=== PATIENT | male | born 1960 | race Caucasian/White ===

== ENCOUNTER 2023-04-30 08:39 | Day surgery (SDC) | payer BC, SELFPAY ==
--- NOTE | 2023-04-29 | HP_ITS ---
Date: 04/29/2023 HISTORY: The patient is a 62-year-old white male with complaints of declining vision out of his right eye. The general make up of onset was gradual over the last 6-12 months. He feels he is frequently noticing difficulty with distance vision such as road signs and the scroller at the bottom of the TV. He also states having difficulty at night time while driving because of headlights creating glare and halos. PAST OCULAR HISTORY: Cataracts. PAST MEDICAL HISTORY: Arthritis. SOCIAL HISTORY: Drinks occasionally. Denies recreational drug abuse and denies tobacco. SYSTEMIC MEDICATIONS: Include bupropion and Vraylar and diclofenac. ALLERGIES TO MEDICATIONS: To pollen extract. REVIEW OF SYSTEMS: No pertinent positives. PHYSICAL EXAM: GENERAL: In general, he is awake, alert and oriented x3, well developed, well nourished, in no acute distress. HEART: Regular rate and rhythm. LUNGS: Clear bilaterally. ABDOMEN: Soft, non-tender, non-distended. EXTREMITIES: No pitting edema. OPHTHALMIC EXAM: Revealed a visual acuity of 20/400 in the right and 20/40 -1 in the left that glared to 20/200. Pupils motility, muscle balance and confrontational visual isabel within normal limits bilaterally. Pressures are measured at 16 bilaterally. Slit lamp exam revealed blepharitis with a severe decrease in tear film bilaterally. Conjunctiva, cornea, anterior chamber and iris were within normal limits bilaterally. Lens status demonstrates 3+ nuclear sclerosis 1+ cortical changes and 3+ PSC in the right eye and 2+ nuclear sclerosis, 1+ cortical changes and 2+ PSC in the left eye. FUNDUS EXAM: Revealed poor view in the right and good view on the left. Optic discs, macula, vessels, periphery were within normal limits bilaterally. ASSESSMENT AND PLAN: Visually significant cataract, right eye. After the risks, benefits, and alternatives as well as expectations were delivered to the patient, he elected to go forward with cataract removal. He understands those risks to include but not limited to infection, bleeding, loss of vision or loss of the eye itself. Secondly, he understands that postoperatively he is likely to require spectacle correction for his best visual acuity. Finally, a complete ophthalmic exam was performed and there was not determined to be any other source of vision decline other than that of cataract. After understanding all risks as well as expectations, he elected to go forward with the procedure as listed above and will be doing so in the near future. MTDD
--- NOTE | 2023-04-30 | OP_ITS ---
OPERATION DATE: 04/30/2023 SURGEON: Get Colbert M.D. PREOPERATIVE DIAGNOSIS: Nuclear sclerotic cataract right eye. POSTOPERATIVE DIAGNOSIS: Nuclear sclerotic cataract right eye. PROCEDURE NAME: Cataract extraction with intraocular lens placement for the right eye. ANESTHESIA: Topical. ESTIMATED BLOOD LOSS: Zero. COMPLICATIONS: None. PROCEDURE: Patient brought to the operating room in supine position. After proper identification, the right eye was prepped and draped in a sterile ophthalmic fashion. A paracentesis was created at the 11 o'clock position. Approximately 1 mL of unpreserved Xylocaine was injected into the anterior chamber followed by Amvisc Plus. Using a 2.6 mm Keratome blade, a clear corneal incision was created at the 9 o'clock limbus. A cystotome was then used to begin a curvilinear capsulorrhexis that was continued for 360 degrees with the Utrata forceps. BSS on a 26 gauge cannula was injected beneath the anterior capsule to hydrodissect as well as hydrodelineate the lens. After ensuring mobility, phacoemulsification was performed in a [id number]-bcr-[id number]-type fashion. After all nuclear material had been removed from the eye, IA was introduced and all residual cortical material was cleaned up. Additional Amvisc Plus was injected into the posterior bag and a lens model MX60, 18.0 diopters was then injected and dialed into position. After ensuring centration, IA was reintroduced into the anterior chamber and all residual Amvisc Plus was removed from the eye. BSS on a 30 gauge cannula was injected into the stroma of both the clear corneal incision as well as the paracentesis to hydrate the wounds. Additional BSS was injected into the anterior chamber to pressurize the eye at approximately 20 to 22 mmHg by finger tension. 0.1 mL of antibiotic was injected into the anterior chamber and Weck-Candace sponges were used to check the wounds to be watertight. One drop of Apraclonidine and one drop of prednisolone acetate were placed into the eye and a shield was placed over top. The patient was then sent to the postoperative area in satisfactory condition to follow up the following day for postoperative care. TALITA
[2023-04-30 08:48] VITALS: BP 139/87; PULSE 87; RESP 18; TEMP 36.5; O2SAT 96
[2023-04-30] MEDS: DIAZEPAM 5 MG TABLET PO (09:05)
[2023-04-30] MEDS: TROPICAMIDE 1% OP SOL 300 DROP/15 ML BOTTLE OP ×4 (09:06→09:39)
[2023-04-30] MEDS: BESIFLOXACIN HCL 100 DROP DROPS.SUSP OP ×4 (09:06→09:38)
[2023-04-30] MEDS: CYCLOPENTOLATE HCL 1% OP SOL 40 DROP/2 ML BOTTLE OP ×4 (09:07→09:39)
[2023-04-30] MEDS: PHENYLEPHRINE HCL 2.5% OP SOL 40 DROP/2 ML BOTTLE OP ×4 (09:07→09:38)
[2023-04-30 10:28] VITALS: BP 144/85; PULSE 69; RESP 18; O2SAT 97
[2023-04-30] MEDS: APRACLONIDINE HCL 100 DROP/5 ML BOTTLE OP (10:32)
[2023-04-30] MEDS: HYALURONATE SODIUM 16 MG/ML SYRINGE EYE-RIGHT (10:32)
[2023-04-30] MEDS: LIDOCAINE 2% JELLY 10 ML UR (10:32)
[2023-04-30] MEDS: BETADINE POVIDONE-IODINE 5% OP SOL 30 ML BOTTLE OP (10:33)
[2023-04-30] MEDS: PROPARACAINE HCL 0.5% 300 DROP/15 ML BOTTLE OP (10:33)
[2023-04-30] MEDS: LIDOCAINE HCL 1% PF 20 MG/2 ML VIAL 1 ML INJ (10:33)
[2023-04-30] MEDS: PREDNISOLONE ACETATE OP 1% SUSP 100 DROPS/5 ML 1 DROP OP (10:33)
[2023-04-30] MEDS: TETRACAINE HCL 0.5% OP SOL 80 DROP/4 ML BOTTLE OP (10:34)
[2023-04-30] MEDS: CEFUROXIME SODIUM 750 MG, 0.9 % SODIUM CHLORIDE 16.3 ML OP (10:34)
[2023-04-30] MEDS: PHENYLEPHRINE/KETOROLAC 1-0.3% ML VIAL 4 ML IRR (10:34)
[2023-04-30 10:37] VITALS: BP 133/75; PULSE 71; RESP 18; O2SAT 97
--- OUTSIDE RECORDS SUMMARY | 2023-05-13 02:44 | XMS_ITS | CCD ---
Author Name Unknown Address [facility] [address] [place] [address] Organization [facility] Care Team Providers Care Roof Service Technician Name Role Phone Dina Hammer Primary Care Physician DOMINGA KELLY Admitting Unavailable DOMINGA KELLY Attending Unavailable DOMINGA KELLY Consulting Unavailable HOY ., DR ARROYO Primary Care Unavailable GEORGE NAVARRO Consulting Unavailable NILL ., DR SANCHEZ Attending Unavailable NILL ., DR SANCHEZ Consulting Unavailable NILL ., DR SANCHEZ Admitting Unavailable HOY ., DR ARROYO Primary Care Unavailable AGUBOSIVIANCA Echavarria Consulting Unavailable CECIL ROWELL Consulting Unavailable NILL ., DR SANCHEZ Admitting Unavailable HOY ., DR ARROYO Primary Care Unavailable NILL ., DR SANCHEZ Attending Unavailable HOY ., DR ARROYO Primary Care Unavailable HOY ., DR ARROYO Admitting Unavailable HOY ., DR ARROYO Attending Unavailable HOY ., DR ARROYO Consulting Unavailable DOMINGA KELLY Attending Unavailable DOMINGA KELLY Admitting Unavailable DOMINGA KELLY Consulting Unavailable HOY ., DR ARROYO Primary Care Unavailable LEVI ORTEGA Attending Unavailable DONIS BRADY Referring Unavailable Allergies Allergy Classification Reported Allergen(s) Allergy Type Date of Onset Reaction(s) Facility (1 source) Pollen Allergy to substance Discharge from eye (finding) [facility] Work Phone: NEGATED: Highlighted row has been ruled out! (1 source) Drug allergy [facility] Work Phone: Medications Current Medications Medication Drug Class(es) Dates Sig (Normalized) Sig (Original) atorvastatin 20 mg oral tablet (1 source) HMG-CoA Reductase Inhibitor Start: 08-01-2020 take 20 mg by mouth once daily atorvastatin 20 mg, Oral, Daily, Refills(s) 0 Start Date: 08/01/20 Status: Ordered 24 hr buPROPion hydrochloride 300 mg extended release oral tablet (1 source) Aminoketone Start: 08-21-2021 take 1 tablet by mouth once daily Wellbutrin XL 300 mg/24 hours Tab-ER 300 mg = 1 tab(s), Oral, Daily, Refills(s) 0 Start Date: 08/21/21 Status: Ordered cariprazine 3 mg oral capsule (1 source) Atypical Antipsychotic Start: 08-01-2020 take 3 mg by mouth once daily Vraylar 3 mg, Oral, Daily, Refills(s) 0 Start Date: 08/01/20 Status: Ordered Problems Active Problems Problem Classification Problem Date Documented Da te Episodic/Chronic Anxiety disorders (2 sources) Anxiety; Translations: [Anxiety disorder, unspecified] Onset: 10-18-2021 08-21-2021 Chronic Disorders of lipid metabolism (1 source) Hyperlipidemia, unspecified; Translations: [HYPERLIPIDEMIA UNSPECIFIED] Onset: 10-18-2021 Chronic Esophageal disorders (1 source) Gastro-esophageal reflux disease without esophagitis; Translations: [GERD WITHOUT ESOPHAGITIS] Onset: 10-18-2021 Chronic Genitourinary symptoms and ill-defined conditions (1 source) Fransisco hematuria 08-01-2020 Episodic Gout and other crystal arthropathies (2 sources) Gout; Translations: [Gout, unspecified] Onset: 10-18-2021 08-01-2020 Chronic Mood disorders (3 sources) Bipolar disorder; Translations: [Depressive disorder] Onset: 10-18-2021 08-21-2021 Chronic Other connective tissue disease (4 sources) Pain in left leg; Translations: [PAIN IN LEFT LEG] Onset: 08-18-2022 Episodic Other endocrine disorders (1 source) Syndrome of inappropriate vasopressin secretion 08-21-2021 Chronic Other gastrointestinal disorders (1 source) History of diverticulitis 08-21-2021 Episodic Other nutritional; endocrine; and metabolic disorders (1 source) Body mass index 40+ - severely obese 08-21-2021 Chronic Residual codes; unclassified (1 source) Sleep apnea, unspecified; Translations: [SLEEP APNEA UNSPECIFIED] Onset: 10-18-2021 Chronic Unclassified (1 source) Patient encounter status 08-21-2021 Unclassified (1 source) CONTACT W/AND (SUSP) EXPOS COVID-19; Translations: [CONTACT W/AND (SUSP) EXPOS COVID-19] Onset: 02-27-2022 Past or Other Problems Problem Classification Problem Date Documented Da te Episodic/Chronic Calculus of urinary tract (3 sources) Kidney stone; Translations: [Ureteric stone] Onset: 10-18-2021 08-01-2020 Episodic Other screening for suspected conditions (not mental disorders or infectious disease) (6 sources) Screening for malignant neoplasm of colon done; Translations: [Encounter for screening for malignant neoplasm of colon] Onset: 08-21-2021 Episodic Other upper respiratory infections (4 sources) Acute sinusitis, unspecified; Translations: [ACUTE SINUSITIS UNSPECIFIED] Onset: 02-26-2022 Episodic Results Test Name Value Interpretation Reference Range Facil ity US RICO DOP LEG LTon 08-19-19 23 US RICO DOP LEG LT EXAMINATION: US RICO DOP LEG LT HISTORY: Pain in left leg COMPARISON: None. TECHNIQUE: Venous duplex examination of the left lower extremity performed using B-mode, color flow and spectral analysis. FINDINGS: Left Thigh Veins: Common Femoral: Patent. Femoral (SFV): Patent. Popliteal: Patent. Left Calf Veins: Peroneal: Patent. Posterior Tibial: Patent. IMPRESSION: No evidence of deep venous thrombosis in the left lower extremity. Electronically authenticated by: GEORGE NAVARRO Date: 2022-08-18 19:53 [address] [facility] Covid-19 PCR (CVDTB)on SARS-CoV-2 (COVID-19) RNA LUÍS+probe Ql (Unsp spec) Not detected Normal NOT DETECTED The [facility] [place] Comment on above: Result Comment: This test is not yet approved or cleared by the [place] FDA. When there are no FDA-approved or cleared tests available, and other criteria are met, FDA can make tests available under an emergency access mechanism called an Emergency Use Authorization (EUA). The EUA for this test is supported by the [place] of Health and Human Service's (HHS's) declaration that circumstances exist to justify the emergency use of in vitro diagnostics for the detection and/or diagnosis of the virus that causes COVID-19. This EUA will remain in effect (meaning this test can be used) for the duration of the COVID-19 declaration justifying emergency of IVDs, unless it is terminated or revoked by FDA (after which the test may no longer be used). When diagnostic testing is negative, the possibility of a false negative should be considered in the context of a patient's recent exposures and the presence of clinical signs and symptoms consistent with SARS-CoV-2. Performed By: #### C VDTBH #### [facility] [address] [place] [address] Dr. Sam Szymanski INSULINon 02-12-2022 Insulin 16.5 uIU/mL Normal 2.6-24.9 [facility] Comment on above: Performed By: #### I NSULIN #### [facility] [address] [place] [address] Dr. Sam Szymanski CBC AUTO DIFFon 02-11-2022 BASO # 0.1 103/ul Normal 0.0-0.1 [facility] Comment on above: Performed By: #### C BC #### [facility] [address] [place] [address] Dr. Sam Szymanski Basophils/100 WBC (Bld) 1.0 % Normal 0.2-2.0 [facility] Comment on above: Performed By: #### C BC #### [facility] [address] [place] [address] Dr. Sam Szymanski EO # 0.1 103/ul Normal 0.0-0.7 [facility] Comment on above: Performed By: #### C BC #### [facility] [address] [place] [address] Dr. Sam Szymanski Eosinophils/100 WBC (Bld) 2.5 % Normal 0.9-7.0 [facility] Comment on above: Performed By: #### C BC #### [facility] [address] [place] [address] Dr. Sam Szymanski Erythrocyte distribution wid th (RBC) [Ratio] 12.7 % Normal 11.0-15.0 [facility] Comment on above: Performed By: #### C BC #### [facility] [address] [place] [address] Dr. Sam Szymanski Hematocrit (Bld) [Volume fraction] 45.3 % Normal 4 2.0-54.0 [facility] Comment on above: Performed By: #### C BC #### [facility] [address] [place] [address] Dr. Sam Szymanski Hemoglobin (Bld) [Mass/Vol] 15.2 g/dL Normal 14.0-18. 0 [facility] Comment on above: Performed By: #### C BC #### [facility] [address] [place] [address] Dr. Sam Szymanski IG # 0.01 10e3/ul Normal 0.00-0.03 [facility] Comment on above: Performed By: #### C BC #### [facility] [address] [place] [address] Dr. Sam Szymanski IG % 0.2 % Normal 0.0-0.5 [facility] Comment on above: Performed By: #### C BC #### [facility] [address] [place] [address] Dr. Sam Szymanski LYMPH # 1.7 103/ul Normal 1.2-3.8 [facility] Comment on above: Performed By: #### C BC #### [facility] [address] [place] [address] Dr. Sam Szymanski Lymphocytes/100 WBC (Bld) 36.0 % Normal 20.5-60.0 [facility] Comment on above: Performed By: #### C BC #### [facility] [address] [place] [address] Dr. Sam Szymanski MANUAL DIFF REQ NO Normal [facility] Comment on above: Performed By: #### C BC #### [facility] [address] [place] [address] Dr. Sam Szymanski MCH (RBC) [Entitic mass] 32.5 pg Normal 25.9-34.0 [facility] Comment on above: Performed By: #### C BC #### [facility] [address] [place] [address] Dr. Sam Szymanski MCHC (RBC) [Mass/Vol] 33.6 g/dL Normal 29.9-35.2 [facility] Comment on above: Performed By: #### C BC #### [facility] [address] [place] [address] Dr. Sam Szymanski MCV (RBC) [Entitic vol] 96.8 fL Critically high 80.0-94 .0 [facility] Comment on above: Performed By: #### C BC #### [facility] [address] [place] [address] Dr. Sam Szymanski MONO # 0.4 103/ul Normal 0.3-0.8 [facility] Comment on above: Performed By: #### C BC #### [facility] [address] [place] [address] Dr. Sam Szymanski Monocytes/100 WBC (Bld) 7.4 % Normal 1.7-12.0 [facility] Comment on above: Performed By: #### C BC #### [facility] [address] [place] [address] Dr. Sam Szymanski NEUT # 2.6 103/ul Normal 1.4-6.5 [facility] Comment on above: Performed By: #### C BC #### [facility] [address] [place] [address] Dr. Sam Szymanski Neutrophils/100 WBC (Bld) 52.9 % Normal 43.0-75.0 [facility] Comment on above: Performed By: #### C BC #### [facility] [address] [place] [address] Dr. Sam Szymanski Platelet mean volume (Bld) [Entitic vol] 9.9 fL Normal 9.5-13.5 [facility] Comment on above: Performed By: #### C BC #### [facility] [address] [place] [address] Dr. Sam Szymanski PLT 204 103/ul Normal 150-450 [facility] Comment on above: Performed By: #### C BC #### [facility] [address] [place] [address] Dr. Sam Szymanski RBC 4.68 106/ul Critically low 4.70-6.10 [facility] Comment on above: Performed By: #### C BC #### [facility] [address] [address] [address] Sam Szymanski WBC 4.8 103/ul Normal 4.0-11.0 [facility] Comment on above: Performed By: #### C BC #### [facility] [address] [address] [address] Sam Szymanski GLYCOHEMOGLOBIN A1Con 2021 ADA RECOMMENDATION SEE BELOW Normal [facility] Comment on above: Result Comment: ADA RECOMMENDED LIMIT 4.0 - 6.0 ADA THERAPEUTIC TARGET < 7.0 ACTION SUGGESTED > 7.0 Performed By: #### A 1C #### [facility] [address] [place] [address] Dr. Sam Szymanski Glucose [Mass/Vol] 117 mg/dL Normal [facility] Comment on above: Performed By: #### A 1C #### [facility] [address] [place] [address] Dr. Sam Szymanski HbA1c (Bld) [Mass fraction] 5.7 % Normal 4.5-6.2 [facility] Comment on above: Performed By: #### A 1C #### [facility] [address] [place] [address] Dr. Sam Szymanski LIPID PROFILEon 02-11-2022 CHOL-HDL RATIO NORM SEE BELOW Normal [facility] Comment on above: Result Comment: 3.3 - 4.4 LOW RISK 4.4 - 7.1 AVERAGE RISK 7.1 - 11.0 MODERATE RISK >11.0 HIGH RISK Performed By: #### L IPID, URIC, CMP #### [facility] [address] [address] [address] Sam Szymanski Cholesterol [Mass/Vol] 224 mg/dL Critically high <=[address] [facility] Comment on above: Performed By: #### L IPID, URIC, CMP #### [facility] [address] [address] [address] Sam Szymanski Cholesterol in HDL [Mass/Vol] 46 mg/dL Normal 40-[address] [facility] Comment on above: Performed By: #### L IPID, URIC, CMP #### [facility] [address] [address] [address] Sam Szymanski Cholesterol in LDL [Mass/Vol] 119.4 mg/dL Normal [facility] Comment on above: Performed By: #### L IPID, URIC, CMP #### [facility] [address] [address] [address] Sam Szymanski Cholesterol.total/Cholestero l in HDL [Mass ratio] 4.9 {ratio} Normal [facility] Comment on above: Performed By: #### L IPID, URIC, CMP #### [facility] [address] [address] [address] Sam Szymanski HDL NORMAL > or = 60 mg/dl - LO W CARDIOVASCULAR RISK <40 mg/dl - HIGH CARDIOVASCULAR RISK Normal [facility] Comment on above: Performed By: #### L IPID, URIC, CMP #### [facility] [address] [address] [address] Sam Szymanski LDL CALC NORMAL SEE BELOW Normal [facility] Comment on above: Result Comment: <100 mg/dl OPTIMAL 100 - 129 mg/dl NEAR OR ABOVE OPTIMAL 130 - 159 mg/dl BORDERLINE HIGH 160 - 189 mg/dl HIGH >190 mg/dl VERY HIGH Performed By: #### L IPID, URIC, CMP #### [facility] [address] [address] [address] Sam Szymanski Triglyceride [Mass/Vol] 293 mg/dL Critically high <=[address] [facility] Comment on above: Performed By: #### L IPID, URIC, CMP #### [facility] [address] [address] [address] Sam Szymanski VLDL CALC 58.6 mg/dL Normal [facility] Comment on above: Performed By: #### L IPID, URIC, CMP #### [facility] [address] [address] [address] Sam Szymanski PROF 14(COMP METB)on 022 Albumin [Mass/Vol] 3.7 g/dL Normal 3.4-5.0 [facility] Comment on above: Performed By: #### L IPID, URIC, CMP #### [facility] [address] [place] [address] Dr. Sam Szymanski Albumin/Globulin [Mass ratio] 1.3 {ratio} Normal [facility] Comment on above: Performed By: #### L IPID, URIC, CMP #### [facility] [address] [place] [address] Dr. Sam Szymanski ALP [Catalytic activity/Vol] 101 U/L Normal 46-116 [facility] Comment on above: Performed By: #### L IPID, URIC, CMP #### [facility] [address] [place] [address] Dr. Sam Szymanski ALT [Catalytic activity/Vol] 45 U/L Normal 16-63 [facility] Comment on above: Performed By: #### L IPID, URIC, CMP #### [facility] [address] [place] [address] Dr. Sam Szymanski Anion gap [Moles/Vol] 9.8 mmol/L Normal [facility] Comment on above: Performed By: #### L IPID, URIC, CMP #### [facility] [address] [place] [address] Dr. Sam Szymanski AST [Catalytic activity/Vol] 23 U/L Normal 15-37 [facility] Comment on above: Performed By: #### L IPID, URIC, CMP #### [facility] [address] [address] [address] Sam Szymanski Bilirubin [Mass/Vol] 0.5 mg/dL Normal 0.2-1.0 [facility] Comment on above: Performed By: #### L IPID, URIC, CMP #### [facility] [address] [place] [address] Dr. Sam Szymanski Calcium [Mass/Vol] 8.9 mg/dL Normal 8.5-10.1 [facility] Comment on above: Performed By: #### L IPID, URIC, CMP #### [facility] [address] [place] [address] Dr. Sam Szymanski Chloride [Moles/Vol] 107 mmol/L Normal 98-107 [facility] Comment on above: Performed By: #### L IPID, URIC, CMP #### [facility] [address] [address] [address] Sam Szymanski CO2 [Moles/Vol] 26.2 mmol/L Normal 21.0-32.0 [facility] Comment on above: Performed By: #### L IPID, URIC, CMP #### [facility] [address] [place] [address] Dr. Sam Szymanski Creatinine [Mass/Vol] 1.12 mg/dL Normal 0.70-1.30 [facility] Comment on above: Performed By: #### L IPID, URIC, CMP #### [facility] [address] [place] [address] Dr. Sam Szymanski EGFR-AF KITTITIAN >60 Normal >=60 [facility] Comment on above: Performed By: #### L IPID, URIC, CMP #### [facility] [address] [place] [address] Dr. Sam Szymanski EGFR-NON AF KITTITIAN >60 Normal >=60 [facility] Comment on above: Performed By: #### L IPID, URIC, CMP #### [facility] [address] [place] [address] Dr. Sam Szymanski Globulin (S) [Mass/Vol] 2.9 g/dL Normal [facility] Comment on above: Performed By: #### L IPID, URIC, CMP #### [facility] [address] [place] [address] Dr. Sam Szymanski Glucose [Mass/Vol] 112 mg/dL Critically high 74-106 [facility] Comment on above: Performed By: #### L IPID, URIC, CMP #### [facility] [address] [place] [address] Dr. Sam Szymanski Potassium [Moles/Vol] 4.0 mmol/L Normal 3.5-5.1 [facility] Comment on above: Performed By: #### L IPID, URIC, CMP #### [facility] [address] [address] [address] Sam Szymanski Protein [Mass/Vol] 6.6 g/dL Normal 6.4-8.2 [facility] Comment on above: Performed By: #### L IPID, URIC, CMP #### [facility] [address] [address] [address] Sam Szymanski Sodium [Moles/Vol] 139 mmol/L Normal 136-145 [facility] Comment on above: Performed By: #### L IPID, URIC, CMP #### [facility] [address] [address] [address] Sam Szymanski Urea nitrogen [Mass/Vol] 10.0 mg/dL Normal 7.0-18.0 [facility] Comment on above: Performed By: #### L IPID, URIC, CMP #### [facility] [address] [place] [address] Dr. Sam Szymanski Urea nitrogen/Creatinine [Mass ratio] 8.9 mg/mg Normal [facility] Comment on above: Performed By: #### L IPID, URIC, CMP #### [facility] [address] [place] [address] Dr. Sam Szymanski URIC ACID SERUMon 02-11-2022 Urate [Mass/Vol] 7.3 mg/dL Critically high 3.5-7.2 [facility] Comment on above: Performed By: #### L IPID, URIC, CMP #### [facility] [address] [place] [address] Dr. Sam Szymanski Outside Colonoscopyon 2021 Outside Colonoscopy [id number]:127 Normal [facility] Reminderson 10-17-2021 Reminders - From: Angelica Pinedo LPN To: N - Clinical; Sent: 10/17/2021 15:19:49 EDT Show up: 09/17/2031 07:00:00 EDT Subject: colonoscopy recall Due Date/Time: 10/17/2031 07:00:00 EDT Reminder/Recall Patient is due for screening colonoscopy 10/17/2031. [facility] Pre-Certification Formon Pre-Certification Form [id number]#[id number]:127 [facility] Consent for Procedure/Surger yon 08-22-2021 Consent for Procedure/Surgery [id number]#[id number]:127 [facility] Facesheeton 08-22-2021 Facesheet [id number]#[id number]: 127 [facility] Ambulatory Visit Summaryon 0 08-21-2021 Ambulatory Visit Summary STERLING RAPHAEL :1960 Visit Date:08/21/2021 Ambulatory Visit Instructions Your Care Team Attending Physician - LILA GUSMAN, Laura Carter Primary Care Physician - Dina Hammer MD This Is Your Medications List Contact prescribing physician if questions or concerns atorvastatin buPROPion (Wellbutrin XL 300 mg/24 hours Tab-ER) cariprazine (Vraylar) Procedures Performed Colonoscopy (05/12/2012), Lithotripsy, Ts - Tonsillectomy. Discharge Vitals Heart Rate (Peripheral) 76 Respiratory Rate 16 Blood Pressure 116/88 Height 180 cm Height 180.0 cm Weight 131.3 kg Weight 131.3 kg BMI 40.52 Medications What How Much When Instructions Unchanged atorvastatin 20 Milligram By Mouth Every day Contact prescribing physician if questions or concerns Unchanged buPROPion (Wellbutrin XL 300 mg/ 24 hours Tab-ER) 1 Tablets By Mouth Every day Contact prescribing physician if questions or concerns Unchanged cariprazine (Vraylar) 3 Milligram By Mouth Every day Contact prescribing physician if questions or concerns Medications and Immunizations Administered Not Given influenza virus vaccine, inactivated, Patient Refuses Allergies No Known Medication Allergies Pollen (Runny eye - discharging) Problems Ongoing - Any problem that you are currently receiving treatment for. ADH disorder Anxiety Bipolar disorder BMI 40.0-44.9, adult Depression Gout Gross hematuria History of diverticulitis Kidney stone Ureteral stone Normal [facility] Physician Referralon 022 Physician Referral [id number]:127 Normal [facility] Lab Reportson 07-03-2021 Lab Reports [id number] D:127 Normal [facility] Lab Reportson 06-29-2021 Lab Reports [id number] D:127 Normal [facility] RAD - MISCon 05-27-2021 RAD - MISC [id number] :127 Normal [facility] Vital Signs Date Time Vital Sign Value Performing Clinician Neal ortiz 08-21-2021 14:17-0400 Blood Pressure Location [facility] 08-21-2021 14:17-0400 Diastolic blood pressure 88 mm[Hg] [facility] 08-21-2021 14:17-0400 Heart rate 76 /min [facility] 08-21-2021 14:17-0400 Respiratory rate 16 /min [facility] 08-21-2021 14:17-0400 Systolic blood pressure 116 mm[Hg] [facility] Encounters Encounter Date Encounter Type Care Provider Facility Start: 05-01-2023 End: 05-01-2023 ambulatory LEVI ORTEGA Not Available Start: 08-18-2022 End: 08-19-2022 ambulatory DOMINGA KELLY Facility:[facility] Start: 02-26-2022 End: 02-26-2022 ambulatory DOMINGA KELLY Facility:[facility] Start: 02-12-2022 Encounter for genera l adult medical examination without abnormal findings DR DINA HAMMER . [facility] Start: 02-11-2022 End: 02-12-[address] DINA HAMMER . Facility:[facility] Start: 02-11-2022 End: 02-12-2022 Encounter for general adult medical examination without abnormal findings DR DINA HAMMER . Facility:[facility] Start: 10-16-2021 End: 10-16-[address] LAURA SELBY . Facility:[facility] Start: 10-12-[address] LAURA SELBY . Facil ity:[facility] Start: 08-21-2021 End: 08-21-2021 Patient encounter procedure Laura SELBY [facility] [place] Procedures Date Procedure Procedure Detail Performing Clinician Start: 02-11-2022 PSA screening DOMINGA PRIDE Comment on above: Performed By: #### [facility] #### [facility] [address] [place] [address] Dr. Sam Szymanski Start: 05-12-2012 Colonoscopy Laura MARCIAL Lithotripsy Laura SELBY Tonsillectomy Laura SELBY Immunizations Immunization Date Immunization Notes Care Provider Fa cility NEGATED: Highlighted row has not occurred!08-21-2021 influenza virus vaccine, unspecified formulation Laura SELBY [facility] [place] Payers Date Payer Category Payer Unknown [id number] [id number] 1960 Unknown [id number] [id number] [id number] 1960 Unknown [id number] [id number] [id number] 1960 Unknown [id number] 2.16.84 [id number] 1960 Unknown [id number] 2.16.84 [id number] 1960 Unknown [id number] 1959 Unknown [id number] Social History Date Type Detail Facility Start: 08-21-2021 Tobacco smoking status Ex-smoker (fi nding) [facility] [place] Tobacco smoking status Smokeless tobacco user within last 30 days [facility] [place] Sex Assigned At Male [facility] [place] Clinical Note 10-16-2021 Note Date & Type Note Facility 10-16-2021 Note [facility] [place], [place] NAME: STERLING RAPHAEL DATE OF : MEDICAL REC#: [id number] 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 POSTOPERATIVE DIAGNOSIS: Normal colon to cecum. PROCEDURE: Colonoscopy to cecum. SURGEON: Laura Selby M.D. ANESTHESIA: Monitored anesthesia care. PREP: Good. INDICATIONS AND CONSENT: Patient is a 61-year-old male who presents for colorectal screening. Indications, risks, benefits, alternatives of proceeding with colonoscopy were explained extensively to the patient, including the risks of bleeding, colonic perforation or anesthetic complications. All of his questions were answered. Informed consent was obtained. PROCEDURE: Patient brought to the operating room, placed in the left lateral decubitus position. Monitored anesthesia care was provided. Rectal exam was performed which showed no masses or blood. The scope was inserted into the anal canal. Under direct visualization was advanced. With the aid of abdominal compression, it was advanced to the cecum where cecal markings were clearly identified. There was noted to be a good prep. Upon withdrawal of the scope, mucosal surfaces were carefully examined. There were no mass lesions or polyps. No inflammatory changes or ulcerations. No significant diverticulosis. The scope was retroflexed in the anal canal. There was no significant hemorrhoidal disease. Scope was then withdrawn. Patient tolerated procedure well, was sent to recovery room in good condition. f/u colonoscopy in 10 years. CC: Dina Hammer M.D. Electronically Authenticated and Edited by: Laura Selby MD on 10/23/2021 08:32 AM EDT IFC Signed and Approved by: DR LAURA SELBY . 10/23/2021 08:32:[address] [facility] Clinical Note 08-21-2021 Note Date & Type Note Facility 08-21-2021 Note Chief Complaint consultation for colonoscopy HPI Staff 61 year old male presents on consultation from Dr. Hammer for colonoscopy. Denies abdominal or rectal pain. No rectal bleeding or change in bowel habits. Denies nausea or vomiting. No unexplained weight loss. Last colonoscopy completed 05/12/12- normal. Grandmother and aunt with history of colon cancer. History of Present Illness 61 yo male with h/o hyperlipidemia, referred for colorectal screening; denies change in bms or blood in stools; no abdominal complaints; last colonoscopy 2011, wnl; no previous abdominal operations, no asa or NSAID use, no SBE prophylaxis; no fmhx of GI malignancy or IBD. rare tobacco use. Review of Systems PHQ Score Initial Depression Screen Score: 0 ROS - Provider Constitutional: no fever, no sweats, no weight loss. Eyes: no glasses, no blurred vision, no visual loss. ENMT: no dentures, no hoarseness, no swallowing difficulties, no hearing loss, no ear infection(s), no nose bleeds. Cardiovascular: normal blood pressure, no chest pain, regular heartbeat, no heart murmur. Respiratory: no shortness of breath, no cough, no asthma, no wheezing. Gastrointestinal: no nausea, no vomiting, no diarrhea, no constipation, no blood in stool, no change in bowel habits, no abdominal pain, no hepatitis. Genitourinary: no kidney stones, no urine infection, no dysuria. Musculoskeletal: no pain, no weakness. Skin: no changing moles, no rash, no skin lumps. Neurologic: no seizures, no epilepsy, no headache. Psychiatric: no emotional or psychiatric problem. Heme/Lymph: no bleeding problems, no anemia, no blood clots, no transfusions. Allergy/Immunologic: no swollen lymph nodes/glands, no IV drug abuse. Other: Additional ROS info: Except as noted in the above Review of Systems and in the History of Present Illness, all other systems have been reviewed and are negative or noncontributory. Physical Exam Vitals & Measurements HR: 76(Peripheral) RR: 16 BP: 116/88 HT: 180 cm HT: 180.0 cm WT: 131.3 kg WT: 131.3 kg BMI: 40.52 HEENT: normal conjunctiva, sclera clear, no scleral icterus, EOM intact, PERRLA, oral mucosa moist without lesions. Neck: trachea midline, no mass, symmetric, no thyromegaly or nodules, no adenopathy Respiratory: lungs CTA, respirations non labored. Cardiovascular: regular rate and rhythm, no murmur, no pedal edema or varicosities. Gastrointestinal: obese, soft, non distended, no tenderness, no masses, no palpable hernias, diastasis recti no, no hepatosplenomegaly; normal bs Lymphatic: no cervical adenopathy, Musculoskeletal: normal gait, digits and nails without infection, nodes, cyanosis, clubbing. Skin: no rashes, no lesions, no ulcers, no subcutaneous nodules, induration. Psychiatric/Neuro: oriented to time, place, person, judgement normal, affect appropriate for age, insight intact, no focal deficits. Tests: review of old records completed, Discussed surgical options, risks, and possible complications with patient. Assessment/Plan 1. Screening for malignant neoplasm of colon (Z12.11: Encounter for screening for malignant neoplasm of colon) plan colonoscopy under anesthesia, informed consent obtained. Follow-up No qualifying data available Problem List/Past Medical History Ongoing ADH disorder Anxiety Bipolar disorder BMI 40.0-44.9, adult Depression Gout Gross hematuria History of diverticulitis Kidney stone Screening for malignant neoplasm of colon Ureteral stone Historical No qualifying data Procedure/Surgical History Colonoscopy (05/12/2012), Lithotripsy, Ts - Tonsillectomy. Medications atorvastatin, 20 mg, Oral, Daily Vraylar, 3 mg, Oral, Daily Wellbutrin XL 300 mg/24 hours Tab-ER, 300 mg= 1 tab(s), Oral, Daily Allergies No Known Medication Allergies Pollen (Runny eye - discharging) Social History Alcohol - Denies Alcohol Use, 08/21/2021 Substance Abuse - Denies Substance Abuse, 08/21/2021 Tobacco Former smoker, quit more than 30 days ago Tobacco Use:. Smokeless tobacco user within last 30 days Smokeless Tobacco Use:. Cigarettes, Oral, Yes, 08/21/2021 Family History Abdominal aortic aneurysm: Father. Hypothyroidism: Sister. Metastatic cancer: Mother. Primary malignant neoplasm of bladder: Father. Immunizations Vaccine Date Status Comments influenza virus vaccine, inactivated - Not Given Patient Refuses [facility] Comment on above: Result Comment: Elec tronically Signed By: LILA GUSMAN, Laura Murcia\Date and Time Signed: 08/21/21 16:36 EDT Evaluation + Plan note Note Date & Type Note Facility Evaluation + Plan note No data available for this section [facility] [place] [facility] Discharge instructions Note Date & Type Note Facility Hospital Discharge instructions No data available for this section [facility] [place] Summary Purpose Family History No Family History Records FoundNo Family History Records FoundNo Family History Records Found Advance Directives No Advanced Directives Records FoundNo Advanced Directives Records FoundNo Advanced Directives Records Found Additional Source Comments (unrecognized sect ion and content) No Status Records FoundNo Status Records FoundNo Status Records Found INFORMATION SOURCE (unrecogn ized section and content) DATE CREATED AUTHOR 10/22/2021 [facility] DATE CREATED AUTHOR AUTHOR'S ORGANIZ ATION 08/27/2022 [facility] DATE CREATED AUTHOR AUTHOR'S ORGANIZ ATION 05/03/2023 [facility] FOR RECORDS PERTAINING TO PATIENTS WHO ARE OR HAVE BEEN ENROLLED IN A CHEMICAL DEPENDENCY/SUBSTANCEABUSE PROGRAM, SOME INFORMATION MAY BE OMITTED. This clinical summary was aggregated from multiple sources. Caution should be exercised in using it in the provision of clinical care. This summary normalizes information from multiple sources, and as a consequence, information in this document may materially change the coding, format and clinical context of patient data. In addition, data may be omitted in some cases. CLINICAL DECISIONS SHOULD BE BASED ON THE PRIMARY CLINICAL RECORDS. [employer] provides no warranty or guarantee of the accuracy or completeness of information in this document.
== END 2023-04-30 11:00 | disposition home or self-care (01) ==
LOC: SURGOUT 08:41
PROVIDERS: PCP Family Medicine; Visit Provider Ophthalmology
PROC: (CPT 66984; principal; 2023-04-30 10:10)
DX: H25.11 Age-related nuclear cataract, right eye (principal); M19.90 Unspecified osteoarthritis, unspecified site
CPT/HCPCS: 66984; V2630

== ENCOUNTER 2023-04-30 08:45 | Outpatient (OUT) | payer SELFPAY | END 2023-04-30 08:46 | disposition home or self-care (01) | LOC: PST 08:45 | PROVIDERS: Visit Provider Ophthalmology | DX: Z01.818 Encounter for other preprocedural examination (principal); H25.811 Combined forms of age-related cataract, right eye ==

== ENCOUNTER 2023-05-20 08:40 | Outpatient (OUT) | payer BC, SELFPAY ==
[2023-05-20 09:04] LABS: Basophils Absolute Auto 0.1 10^3/uL (0.0-0.1); Basophils Percent Auto 1.4 % (0.2-2.0); Eosinophils Absolute Auto 0.1 10^3/uL (0.0-0.7); Eosinophils Percent Auto 2.1 % (0.9-7.0); Hematocrit 46.4 % (42.0-54.0); Hemoglobin 15.6 g/dL (14.0-18.0); Immature Granulocytes Abs Auto 0.01 10^3/uL (0.00-0.03); Immature Granulocytes Pct Auto 0.2 % (0.0-0.5); Lymphocytes Percent Auto 34.2 % (20.5-60.0); Mean Corpuscular HGB Conc 33.6 g/dL (29.9-35.2); Mean Corpuscular Hemoglobin 32.5 pg (25.9-34.0); Mean Corpuscular Volume 96.7 fL (80.0-94.0); Mean Platelet Volume 9.9 fL (9.5-13.5); Monocytes Absolute Auto 0.4 10^3/uL (0.3-0.8); Monocytes Percent Auto 6.5 % (1.7-12.0); Neutrophils Absolute Auto 3.3 10^3/uL (1.4-6.5); Neutrophils Percent Auto 55.6 % (43.0-75.0); Platelet Count 209 10^3/uL (150-450); Red Cell Distribution Width 12.4 % (11.0-15.0); White Blood Count 5.9 10^3/uL (4.0-11.0)
[2023-05-20 09:07] LABS: Estimated Average Glucose 131 mg/dL; Glycohemoglobin A1C 6.2 % (4.5-6.2)
[2023-05-20 09:36] LABS: Alanine Aminotransferase 46 U/L (16-63); Albumin Globulin Ratio 1.1; Albumin Level 3.5 g/dL (3.4-5.0); Alkaline Phosphatase 112 U/L (46-116); Aspartate Amino Transferase 21 U/L (15-37); BUN Creatinine Ratio 12.1; Bilirubin Total 0.4 mg/dL (0.2-1.0); Calcium 8.9 mg/dL (8.5-10.1); Carbon Dioxide 24.2 mmol/L (21.0-32.0); Chloride 106 mmol/L (98-107); Cholesterol 221 mg/dL (<=200); Estimated GFR (African America >60 (>=60); Estimated GFR (Non-African Ame >60 (>=60); Free T3 3.11 pg/mL (2.18-3.98); Globulin 3.2 g/dL; Glucose 119 mg/dL (74-106); HDL Cholesterol 44 mg/dL (40-60); Potassium 4.2 mmol/L (3.5-5.1); Sodium 142 mmol/L (136-145); Thyroid Stimulating Hormone 2.221 uIU/mL (0.358-3.740); Total Protein 6.7 g/dL (6.4-8.2); Triglycerides 350 mg/dL (<=150)
[2023-05-20 10:41] LABS: Prostate Specific Antigen Scrn 0.53 ng/mL (<=4.00)
== END 2023-05-20 08:41 | disposition home or self-care (01) ==
LOC: LAB 08:41
PROVIDERS: PCP Family Medicine; Visit Provider Family Medicine
DX: Z00.00 Encounter for general adult medical examination without abnormal findings (principal); R53.83 Other fatigue
CPT/HCPCS: 36415; 80053; 80061; 83036; 84439; 84443; 84481; 85025; G0103

== ENCOUNTER 2023-05-21 11:25 | Outpatient (OUT) | payer BC, SELFPAY ==
--- OUTSIDE RECORDS SUMMARY | 2023-05-21 11:30 | XMS_ITS | CCD ---
Author Name Unknown Address [facility] [address] [place] [address] Organization [facility] Care Team Providers Care Sampler Ovens Name Role Phone Dina Hammer Primary Care [...] substance Discharge from eye (finding) [facility] Work Phone: NEGATED: Highlighted row has been ruled out! (1 source) Drug allergy [facility] Work Phone: Medications Current Medications Medication Drug [...] Date: 2022-08-18 19:53 Normal [facility] Covid-19 PCR (CVDTB)on SARS-CoV-2 (COVID-19) RNA LUÍS+probe Ql (Unsp spec) Not detected Normal NOT DETECTED [facility] Comment on above: Result Comment: This test is not yet approved or cleared by the [place] FDA. When there are no FDA-approved or cleared tests available, and other criteria are met, FDA can make tests available under an emergency access mechanism called an Emergency Use Authorization (EUA). The EUA for this test is supported by the [place] of Health and Human Service's (HHS's) declaration [...] By: #### C VDTBH #### [facility] [address] [place] [address] Dr. Sam Szymanski INSULINon 02-12-2022 Insulin 16.5 uIU/mL Normal 2.6-24.9 [facility] Comment on above: Performed By: #### I NSULIN #### [facility] [address] [place] [address] Dr. Sam Szymanski CBC AUTO DIFFon 02-11-2022 BASO # 0.1 103/ul Normal 0.0-0.1 [facility] Comment on above: Performed By: #### C BC #### [facility] [address] [place] [address] Dr. Sam Szymanski Basophils/100 WBC (Bld) 1.0 % Normal 0.2-2.0 [facility] Comment on above: Performed By: #### C BC #### [facility] [address] [place] [address] Dr. Sam Szymanski EO # 0.1 103/ul Normal 0.0-0.7 [facility] Comment on above: Performed By: #### C BC #### [facility] [address] [place] [address] Dr. Sam Szymanski Eosinophils/100 WBC (Bld) 2.5 % Normal 0.9-7.0 [facility] Comment on above: Performed By: #### C BC #### [facility] [address] [place] [address] Dr. Sam Szymanski Erythrocyte distribution width (RBC) [Ratio] 12.7 % Normal 11.0-15.0 [facility] Comment on above: Performed By: #### C BC #### [facility] [address] [place] [address] Dr. Sam Szymanski Hematocrit (Bld) [Volume fraction] 45.3 % Normal 42.0-54.0 [facility] Comment on above: Performed By: #### C BC #### [facility] [address] [place] [address] Dr. Sam Szymanski Hemoglobin (Bld) [Mass/Vol] 15.2 g/dL Normal 14.0-18.0 [facility] Comment on above: Performed By: #### C BC #### [facility] [address] [place] [address] Dr. Sam Szymanski IG # 0.01 10e3/ul Normal 0.00-0.03 [facility] Comment on above: Performed By: #### C BC #### [facility] [address] [place] [address] Dr. Sam Szymanski IG % 0.2 % Normal 0.0-0.5 [facility] Comment on above: Performed By: #### C BC #### [facility] [address] [place] [address] Dr. Sam Szymanski LYMPH # 1.7 103/ul Normal 1.2-3.8 [facility] Comment on above: Performed By: #### C BC #### [facility] [address] [place] [address] Dr. Sam Szymanski Lymphocytes/100 WBC (Bld) 36.0 % Normal 20.5-60.0 [facility] Comment on above: Performed By: #### C BC #### [facility] [address] [place] [address] Dr. Sam Szymanski MANUAL DIFF REQ NO Normal [facility] Comment on above: Performed By: #### C BC #### [facility] [address] [place] [address] Dr. Sam Szymanski MCH (RBC) [Entitic mass] 32.5 pg Normal 25.9-34.0 [facility] Comment on above: Performed By: #### C BC #### [facility] [address] [place] [address] Dr. Sam Szymanski MCHC (RBC) [Mass/Vol] 33.6 g/dL Normal 29.9-35.2 [facility] Comment on above: Performed By: #### C BC #### [facility] [address] [address] [address] Sam Szymanski MCV (RBC) [Entitic vol] 96.8 fL Critically high 80.0-94.0 [facility] Comment on above: Performed By: #### C BC #### [facility] [address] [address] [address] Sam Szymanski MONO # 0.4 103/ul Normal 0.3-0.8 [facility] Comment on above: Performed By: #### C BC #### [facility] [address] [address] [address] Sam Szymanski Monocytes/100 WBC (Bld) 7.4 % Normal 1.7-12.0 [facility] Comment on above: Performed By: #### C BC #### [facility] [address] [address] [address] Sam Szymanski NEUT # 2.6 103/ul Normal 1.4-6.5 [facility] Comment on above: Performed By: #### C BC #### [facility] [address] [address] [address] Sam Szymanski Neutrophils/100 WBC (Bld) 52.9 % Normal 43.0-75.0 [facility] Comment on above: Performed By: #### C BC #### [facility] [address] [address] [address] Sam Szymanski Platelet mean volume (Bld) [Entitic vol] 9.9 fL Normal 9.5-13.5 [facility] Comment on above: Performed By: #### C BC #### [facility] [address] [address] [address] Sam Szymanski PLT 204 103/ul Normal 150-450 [facility] Comment on above: Performed By: #### C BC #### [facility] [id number] Sam Szymanski RBC 4.68 106/ul Critically low 4.70-6.10 [facility] Comment on above: Performed By: #### C BC #### [facility] [address] [address] [address] Sam Szymanski WBC 4.8 103/ul Normal 4.0-11.0 [facility] Comment on above: Performed By: #### C BC #### [facility] [address] [address] [address] Sam Szymanski GLYCOHEMOGLOBIN A1Con 2021 ADA RECOMMENDATION SEE BELOW Normal [facility] Comment on above: Result Comment: ADA RECOMMENDED LIMIT 4.0 - 6.0 ADA THERAPEUTIC TARGET < 7.0 ACTION SUGGESTED > 7.0 Performed By: #### A 1C #### [facility] [address] [place] [address] Dr. Sam Szymanski Glucose [Mass/Vol] 117 mg/dL Normal [facility] Comment on above: Performed By: #### A 1C #### [facility] [address] [place] [address] Dr. Sam Szymanski HbA1c (Bld) [Mass fraction] 5.7 % Normal 4.5-6.2 [facility] Comment on above: Performed By: #### A 1C #### [facility] [address] [place] [address] Dr. Sam Szymanski LIPID PROFILEon 02-11-2022 CHOL-HDL RATIO NORM SEE BELOW Normal [facility] Comment on above: Result Comment: 3.3 - 4.4 LOW RISK 4.4 - 7.1 AVERAGE RISK 7.1 - 11.0 MODERATE RISK >11.0 HIGH RISK Performed By: #### L IPID, URIC, CMP #### [facility] [address] [place] [address] Dr. Sam Szymanski Cholesterol [Mass/Vol] 224 mg/dL Critically high <=200 [facility] Comment on above: Performed By: #### L IPID, URIC, CMP #### [facility] [address] [place] [address] Dr. Sam Szymanski Cholesterol in HDL [Mass/Vol] 46 mg/dL Normal 40-60 [facility] Comment on above: Performed By: #### L IPID, URIC, CMP #### [facility] [address] [address] [address] Sam Szymanski Cholesterol in LDL [Mass/Vol] 119.4 mg/dL Normal [facility] Comment on above: Performed By: #### L IPID, URIC, CMP #### [facility] [address] [address] [address] Sam Szymanski Cholesterol.total/Cho lesterol in HDL [Mass ratio] 4.9 {ratio} Normal [facility] Comment on above: Performed By: #### L IPID, URIC, CMP #### [facility] [address] [address] [address] Sam Szymanski HDL NORMAL > or = 60 mg/dl - LOW CARDIOVASCULAR RISK <40 mg/dl - HIGH CARDIOVASCULAR RISK Normal [facility] Comment on above: Performed By: #### L IPID, URIC, CMP #### [facility] [address] [address] [address] Sam Szymanski LDL CALC NORMAL SEE BELOW Normal [facility] Comment on above: Result Comment: <100 mg/dl OPTIMAL 100 - 129 mg/dl NEAR OR ABOVE OPTIMAL 130 - 159 mg/dl BORDERLINE HIGH 160 - 189 mg/dl HIGH >190 mg/dl VERY HIGH Performed By: #### L IPID, URIC, CMP #### [facility] [address] [address] [address] Sam Szymanski Triglyceride [Mass/Vol] 293 mg/dL Critically high <=150 [facility] Comment on above: Performed By: #### L IPID, URIC, CMP #### [facility] [address] [address] [address] Sam Szymanski VLDL CALC 58.6 mg/dL Normal [facility] Comment on above: Performed By: #### L IPID, URIC, CMP #### [facility] [address] [address] [address] Sam Szymanski PROF 14(COMP METB)on 022 Albumin [Mass/Vol] 3.7 g/dL Normal 3.4-5.[address] [facility] Comment on above: Performed By: #### L IPID, URIC, CMP #### [facility] [address] [address] [address] Sam Szymanksi Albumin/Globulin [Mass ratio] 1.3 {ratio} Normal [facility] Comment on above: Performed By: #### L IPID, URIC, CMP #### [facility] [address] [address] [address] Sam Szymanski ALP [Catalytic activity/Vol] 101 U/L Normal 46-116 [facility] Comment on above: Performed By: #### L IPID, URIC, CMP #### [facility] [address] [address] [address] Sam Szymanski ALT [Catalytic activity/Vol] 45 U/L Normal 16-63 [facility] Comment on above: Performed By: #### L IPID, URIC, CMP #### [facility] [address] [address] [address] Sam Szymanski Anion gap [Moles/Vol] 9.8 mmol/L Normal [facility] Comment on above: Performed By: #### L IPID, URIC, CMP #### [facility] [address] [address] [address] Sam Szymanski AST [Catalytic activity/Vol] 23 U/L Normal 15-37 [facility] Comment on above: Performed By: #### L IPID, URIC, CMP #### [facility] [address] [address] [address] Sam Szymanski Bilirubin [Mass/Vol] 0.5 mg/dL Normal 0.2-1.0 [facility] Comment on above: Performed By: #### L IPID, URIC, CMP #### [facility] [address] [address] [address] Sam Szymanski Calcium [Mass/Vol] 8.9 mg/dL Normal 8.5-10.1 [facility] Comment on above: Performed By: #### L IPID, URIC, CMP #### [facility] [address] [address] [address] Sam Szymanski Chloride [Moles/Vol] 107 mmol/L Normal 98-107 [facility] Comment on above: Performed By: #### L IPID, URIC, CMP #### [facility] [address] [address] [address] Sam Szymanski CO2 [Moles/Vol] 26.2 mmol/L Normal 21.0-32.0 [facility] Comment on above: Performed By: #### L IPID, URIC, CMP #### [facility] [address] [address] [address] Sam Szymanski Creatinine [Mass/Vol] 1.12 mg/dL Normal 0.70-1.30 [facility] Comment on above: Performed By: #### L IPID, URIC, CMP #### [facility] [address] [address] [address] Sam Szymanski EGFR-AF BRUNEIAN >60 Normal >=60 [facility] Comment on above: Performed By: #### L IPID, URIC, CMP #### [facility] [address] [address] [address] Sam Szymanski EGFR-NON AF BRUNEIAN >60 Normal >=60 [facility] Comment on above: Performed By: #### L IPID, URIC, CMP #### [facility] [address] [address] [address] Sam Szymanski Globulin (S) [Mass/Vol] 2.9 g/dL Normal [facility] Comment on above: Performed By: #### L IPID, URIC, CMP #### [facility] [address] [address] [address] Sam Szymanski Glucose [Mass/Vol] 112 mg/dL Critically high 74-106 [facility] Comment on above: Performed By: #### L IPID, URIC, CMP #### [facility] [address] [address] [address] Sam Szymanski Potassium [Moles/Vol] 4.0 mmol/L Normal 3.5-5.1 [facility] Comment on above: Performed By: #### L IPID, URIC, CMP #### [facility] [address] [address] [address] Sam Szymanski Protein [Mass/Vol] 6.6 g/dL Normal 6.4-8.[address] [facility] Comment on above: Performed By: #### L IPID, URIC, CMP #### [facility] [address] [address] [address] Sam Szymanski Sodium [Moles/Vol] 139 mmol/L Normal 136-[address] [facility] Comment on above: Performed By: #### L IPID, URIC, CMP #### [facility] [address] [place] [address] Dr. Sam Szymanski Urea nitrogen [Mass/Vol] 10.0 mg/dL Normal 7.0-18.0 [facility] Comment on above: Performed By: #### L IPID, URIC, CMP #### [facility] [address] [place] [address] Dr. Sam Szymanski Urea nitrogen/Creatinine [Mass ratio] 8.9 mg/mg Normal [facility] Comment on above: Performed By: #### L IPID, URIC, CMP #### [facility] [address] [place] [address] Dr. Sam Szymanski URIC ACID SERUMon 02-11-2022 Urate [Mass/Vol] 7.3 mg/dL Critically high 3.5-7.2 [facility] Comment on above: Performed By: #### L IPID, URIC, CMP #### [facility] [address] [place] [address] Dr. Sam Szymanski Outside Colonoscopyon 2021 Outside Colonoscopy [id number]# 1.00CD:[address] [facility] Reminderson 10-17-2021 Reminders - From: Angelica Pinedo LPN To: GSN - Clinical; Sent: 10/17/2021 15:19:49 EDT Show up: 09/17/2031 07:00:00 EDT Subject: colonoscopy recall Due Date/Time: 10/17/2031 07:00:00 EDT Reminder/Recall Patient is due for screening colonoscopy 10/17/2031. Normal [facility] Pre-Certification Formon Pre-Certification Form [id number] #1.00CD:127 [facility] Consent for Procedure/Surger yon 08-22-2021 Consent for Procedure/Surgery [id number]# 1.00CD:[address] [facility] Facesheeton 08-22-2021 Facesheet [id number]# 1.00CD:127 [facility] Ambulatory Visit Summaryon 0 08-21-2021 Ambulatory Visit Summary STERLING RAPHAEL :1960 Visit Date:08/21/2021 Ambulatory Visit Instructions Your Care Team Attending Physician - LILA GUSMAN, Laura Carter Primary Care Physician - Jaquelin GUSMAN, Dina This Is Your Medications List Contact prescribing [...] History of diverticulitis Kidney stone Ureteral stone [facility] Physician Referralon 022 Physician Referral [id number] #1.00CD:[address] [facility] Lab Reportson 07-03-2021 Lab Reports [id number] #1.00CD:[address] [facility] Lab Reportson 06-29-2021 Lab Reports [id number] #1.00CD:[address] [facility] RAD - MISCon 05-27-2021 RAD - MISC [id number] #1.00CD:[address] [facility] Vital Signs Date Time Vital Sign Value Performing Clinician Neal ortiz 08-21-2021 14:17-0400 Blood Pressure Location Pomelo[facility] [employer] 08-21-2021 14:17-0400 Diastolic blood pressure 88 mm[Hg] Laura NILL [facility] 08-21-2021 14:17-0400 Heart rate 76 /min Laura NILL General Surgery [facility] 08-21-2021 14:17-0400 Respiratory rate 16 /min Alura NILL [facility] 08-21-2021 14:17-0400 Systolic blood pressure 116 mm[Hg] Laura [employer] [facility] Encounters Encounter Date Encounter Type Care Provider Facility Start: 05-01-2023 End: 05-01-2023 ambulatory LEVI ORTEGA Not Available Start: 08-18-2022 End: 08-19-2022 ambulatory DOMINGA KELLY Facility:[facility] Start: 02-26-2022 End: 02-26-2022 ambulatory DOMINGA KELLY Facility:[facility] Start: 02-12-2022 Encounter for genera l adult medical examination without abnormal findings DR DINA HAMMER . [facility] Start: 02-11-2022 End: 02-12-[address] DINA HAMMER . Facility:[facility] Start: 02-11-2022 End: 02-12-2022 Encounter for general adult medical examination without abnormal findings DR DINA HAMMER . Facility:[facility] Start: 10-16-2021 End: 10-16-[address] LAURA SELBY . Facility:[facility] Start: 10-12-[address] LAURA SELBY . Facil ity:[facility] Start: 08-21-2021 End: 08-21-2021 Patient encounter procedure Laura SELBY General Surgery Josephinel/Said Fadi Procedures Date Procedure Procedure Detail Performing Clinician Start: 02-11-2022 PSA screening DOMINGA PRIDE Comment on above: Performed By: #### [facility] #### [facility] [address] [place] [address] Dr. Sam Szymanski Start: 05-12-2012 Colonoscopy Laura MARCIAL Lithotripsy Laura SELBY Tonsillectomy Laura SELBY Immunizations Immunization Date Immunization Notes Care Provider Fa cilisydni NEGATED: Highlighted row has not occurred!08-21-2021 influenza virus vaccine, unspecified formulation Laura SELBY [facility] Payers Date Payer Category Payer Unknown [id number] [id number] [id number] 1960 Unknown [id number] 2.16.84 [id number] 1960 Unknown [id number] 2.16.84 [id number] 1960 Unknown [id number] 2.16.84 [id number] 1960 Unknown [id number] 2.16.84 [id number] 1960 Unknown [id number] 1959 Unknown [id number] Social History Date Type Detail Facility Start: 08-21-2021 Tobacco smoking status Ex-smoker (fi nding) [facility] Tobacco smoking status Smokeless tobacco user within last 30 days [facility] Sex Assigned At Male [facility] Clinical Note 10-16-2021 Note Date & Type Note Facility 10-16-2021 Note [facility] [place] [place] NAME: STERLING RAPHAEL DATE OF : MEDICAL REC#: [id number] PHILOSOPHY LECTURER: [address] [facility], TRANS[facility]MIT DATE: 10/16/2021 08:05:00 IT COMMUNICATIONS SPECIALIST DATE: 10/16/2021 21:00 DICTATING PHYSICIAN: LAURA SELBY [...] by: DR LAURA SELBY . 10/23/2021 08:32:00 [facility] Clinical Note 08-21-2021 Note Date & [...] vaccine, inactivated - Not Given Patient Refuses [facility] Comment on above: Result Comment: Elec tronically Signed By: LILA GUSMAN, Laura Murcia\Date and Time Signed: 08/21/21 16:36 EDT Evaluation + Plan note Note Date & Type Note Facility Evaluation + Plan note No data available for this section [facility] Discharge instructions Note Date & Type Note Facility Hospital Discharge instructions No data available for this section [facility] Summary Purpose Family History No Family History Records FoundNo Family History Records FoundNo Family History Records Found Advance Directives No Advanced Directives Records FoundNo Advanced Directives Records FoundNo Advanced Directives Records Found Additional Source Comments (unrecognized sect ion and content) No Status Records FoundNo Status Records FoundNo Status Records Found INFORMATION SOURCE (unrecogn ized section and content) DATE CREATED AUTHOR 10/22/2021 [facility] DATE CREATED AUTHOR AUTHOR'S ORGANIZ ATION 08/27/2022 [facility] DATE CREATED AUTHOR AUTHOR'S ORGANIZ ATION 05/03/2023 [facility] RECORDS PERTAINING TO PATIENTS WHO ARE [...] BE BASED ON THE PRIMARY CLINICAL RECORDS. [facility] [employer] [facility]. provides no warranty or guarantee of the accuracy or completeness of information in this document.
== END 2023-05-21 11:26 | disposition home or self-care (01) ==
LOC: LAB 11:27
PROVIDERS: PCP Family Medicine; Visit Provider Family Medicine
DX: R06.00 Dyspnea, unspecified (principal); I11.0 Hypertensive heart disease with heart failure; I50.30 Unspecified diastolic (congestive) heart failure
CPT/HCPCS: 36415; 83880

== ENCOUNTER 2023-06-24 09:43 | Outpatient (OUT) | payer BC, SELFPAY ==
--- OUTSIDE RECORDS SUMMARY | 2023-06-12 08:43 | XMS_ITS | CCD ---
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 (1 source) Drug allergy [facility] [place] Work Phone: Medications Current Medications Medication Drug [...] GEORGE NAVARRO Date: 2022-08-18 19:53 Normal [facility] Covid-19 PCR (CVDTB)on SARS-CoV-2 (COVID-19) RNA LUÍS+probe Ql (Unsp spec) Not detected Normal NOT DETECTED [facility] Comment on above: Result Comment: This test is not yet approved or cleared by the [place] FDA. When there are no FDA-approved or cleared tests available, and other criteria are met, FDA can make tests available under an emergency access mechanism called an Emergency Use Authorization (EUA). The EUA for this test is supported by the Auto Fleet Manager of Health and Human Service's (HHS's) declaration [...] SARS-CoV-2. Performed By: #### C VDTBH #### [facility] [address] [place] [address] Dr. Sam Szymanski INSULINon 02-12-2022 Insulin 16.5 uIU/mL Normal 2.6-24.9 [facility] Comment on above: Performed By: #### I NSULIN #### [facility] [address] [place] [address] Dr. Sam Szymanski CBC AUTO DIFFon 02-11-2022 BASO # 0.1 103/ul Normal 0.0-0.1 [facility] Comment on above: Performed By: #### C BC #### [facility] [address] [place] [address] Dr. Sam Szymanski Basophils/100 WBC (Bld) 1.0 % Normal 0.2-2.0 [facility] Comment on above: Performed By: #### C BC #### [facility] [address] [place] [address] Dr. Sam Szymanski EO # 0.1 103/ul Normal 0.0-0.7 [facility] Comment on above: Performed By: #### C BC #### [facility] [address] [place] [address] Dr. Sam Szymanski Eosinophils/100 WBC (Bld) 2.5 % Normal 0.9-7.0 [facility] Comment on above: Performed By: #### C BC #### [facility] [address] [place] [address] Dr. Sam Szymanski Erythrocyte distribution width (RBC) [Ratio] 12.7 % Normal 11.0-15.0 [facility] Comment on above: Performed By: #### C BC #### [facility] [address] [place] [address] Dr. Sma Szymanski Hematocrit (Bld) [Volume fraction] 45.3 % Normal 42.0-54.0 [facility] Comment on above: Performed By: #### C BC #### [facility] [address] [place] [address] Dr. Sam Szymanski Hemoglobin (Bld) [Mass/Vol] 15.2 g/dL Normal 14.0-18.0 [facility] Comment on above: Performed By: #### C BC #### [facility] [address] [place] [address] Dr. Sam Szymanski IG # 0.01 10e3/ul Normal 0.00-0.03 [facility] Comment on above: Performed By: #### C BC #### [facility] [address] [place] [address] Dr. Sam Szymanski IG % 0.2 % Normal 0.0-0.5 [facility] Comment on above: Performed By: #### C BC #### [facility] [address] [place] [address] Dr. Sam Szymanski LYMPH # 1.7 103/ul Normal 1.2-3.8 [facility] Comment on above: Performed By: #### C BC #### [facility] [address] [place] [address] Dr. Sam Szymanski Lymphocytes/100 WBC (Bld) 36.0 % Normal 20.5-60.0 [facility] Comment on above: Performed By: #### C BC #### [facility] [address] [place] [address] Dr. Sam Szymanski MANUAL DIFF REQ NO Normal [facility] Comment on above: Performed By: #### C BC #### [facility] [address] [place] [address] Dr. Sam Szymanski MCH (RBC) [Entitic mass] 32.5 pg Normal 25.9-34.0 [facility] Comment on above: Performed By: #### C BC #### [facility] [address] [place] [address] Dr. Sam Szymanski MCHC (RBC) [Mass/Vol] 33.6 g/dL Normal 29.9-35.2 [facility] Comment on above: Performed By: #### C BC #### [facility] [address] [address] [address] Sam Szymanski MCV (RBC) [Entitic vol] 96.8 fL Critically high 80.0-94.0 [facility] Comment on above: Performed By: #### C BC #### [facility] [address] [address] [address] Sam Szymanski MONO # 0.4 103/ul Normal 0.3-0.8 [facility] Comment on above: Performed By: #### C BC #### [facility] [address] [address] [address] Sam Szymanski Monocytes/100 WBC (Bld) 7.4 % Normal 1.7-12.0 [facility] Comment on above: Performed By: #### C BC #### [facility] [address] [address] [address] Sam Szymanski NEUT # 2.6 103/ul Normal 1.4-6.5 [facility] Comment on above: Performed By: #### C BC #### [facility] [address] [address] [address] Sam Szymanski Neutrophils/100 WBC (Bld) 52.9 % Normal 43.0-75.0 [facility] Comment on above: Performed By: #### C BC #### [facility] [address] [address] [address] Sam Szymanski Platelet mean volume (Bld) [Entitic vol] 9.9 fL Normal 9.5-13.5 [facility] Comment on above: Performed By: #### C BC #### [facility] [address] [address] [address] Sam Szymanski PLT 204 103/ul Normal 150-450 [facility] Comment on above: Performed By: #### C BC #### [facility] [id number] Sam Szymanski RBC 4.68 106/ul Critically low 4.70-6.10 [facility] Comment on above: Performed By: #### C BC #### [facility] [address] [address] [address] Sam Szymanski WBC 4.8 103/ul Normal 4.0-11.0 [facility] Comment on above: Performed By: #### C BC #### [facility] [address] [address] [address] Sam Szymanski GLYCOHEMOGLOBIN A1Con 2021 ADA RECOMMENDATION SEE BELOW Normal [facility] Comment on above: Result Comment: ADA RECOMMENDED LIMIT 4.0 - 6.0 ADA THERAPEUTIC TARGET < 7.0 ACTION SUGGESTED > 7.0 Performed By: #### A 1C #### [facility] [address] [place] [address] Dr. Sam Szymanski Glucose [Mass/Vol] 117 mg/dL Normal [facility] Comment on above: Performed By: #### A 1C #### [facility] [address] [place] [address] Dr. Sam Szymanski HbA1c (Bld) [Mass fraction] 5.7 % Normal 4.5-6.2 [facility] Comment on above: Performed By: #### A 1C #### [facility] [address] [place] [address] Dr. Sam Szymanski LIPID PROFILEon 02-11-2022 CHOL-HDL RATIO NORM SEE BELOW Normal [facility] Comment on above: Result Comment: 3.3 - 4.4 LOW RISK 4.4 - 7.1 AVERAGE RISK 7.1 - 11.0 MODERATE RISK >11.0 HIGH RISK Performed By: #### L IPID, URIC, CMP #### [facility] [address] [place] [address] Dr. Sam Szymanski Cholesterol [Mass/Vol] 224 mg/dL Critically high <=200 [facility] Comment on above: Performed By: #### L IPID, URIC, CMP #### [facility] [address] [place] [address] Dr. Sam Szymanski Cholesterol in HDL [Mass/Vol] 46 mg/dL Normal 40-60 [facility] Comment on above: Performed By: #### L IPID, URIC, CMP #### [facility] [address] [address] [address] Sam Szymanski Cholesterol in LDL [Mass/Vol] 119.4 mg/dL Normal [facility] Comment on above: Performed By: #### L IPID, URIC, CMP #### [facility] [address] [address] [address] Sam Szymanski Cholesterol.total/Cho lesterol in HDL [Mass ratio] 4.9 {ratio} Normal [facility] Comment on above: Performed By: #### L IPID, URIC, CMP #### [facility] [address] [address] [address] Sam Szymanski HDL NORMAL > or = 60 mg/dl - LOW CARDIOVASCULAR RISK <40 mg/dl - HIGH CARDIOVASCULAR RISK Normal [facility] Comment on above: Performed By: #### L IPID, URIC, CMP #### [facility] [address] [address] [address] Sam Szymanski LDL CALC NORMAL SEE BELOW Normal [facility] Comment on above: Result Comment: <100 mg/dl OPTIMAL 100 - 129 mg/dl NEAR OR ABOVE OPTIMAL 130 - 159 mg/dl BORDERLINE HIGH 160 - 189 mg/dl HIGH >190 mg/dl VERY HIGH Performed By: #### L IPID, URIC, CMP #### [facility] [address] [address] [address] Sam Szymanski Triglyceride [Mass/Vol] 293 mg/dL Critically high <=150 [facility] Comment on above: Performed By: #### L IPID, URIC, CMP #### [facility] [address] [address] [address] Sam Szymanski VLDL CALC 58.6 mg/dL Normal [facility] Comment on above: Performed By: #### L IPID, URIC, CMP #### [facility] [address] [address] [address] Sam Szymanski PROF 14(COMP METB)on 022 Albumin [Mass/Vol] 3.7 g/dL Normal 3.4-5.0 [facility] Comment on above: Performed By: #### L IPID, URIC, CMP #### [facility] [address] [address] [address] Sam Szymanski Albumin/Globulin [Mass ratio] 1.3 {ratio} Normal [facility] Comment on above: Performed By: #### L IPID, URIC, CMP #### [facility] [address] [address] [address] Sam Szymanski ALP [Catalytic activity/Vol] 101 U/L Normal 46-116 [facility] Comment on above: Performed By: #### L IPID, URIC, CMP #### [facility] [address] [address] [address] Sam Szymanski ALT [Catalytic activity/Vol] 45 U/L Normal 16-63 [facility] Comment on above: Performed By: #### L IPID, URIC, CMP #### [facility] [address] [address] [address] Sam Szymanski Anion gap [Moles/Vol] 9.8 mmol/L Normal [facility] Comment on above: Performed By: #### L IPID, URIC, CMP #### [facility] [address] [address] [address] Sam Szymanski AST [Catalytic activity/Vol] 23 U/L Normal 15-37 [facility] Comment on above: Performed By: #### L IPID, URIC, CMP #### [facility] [address] [address] [address] Sam Szymanski Bilirubin [Mass/Vol] 0.5 mg/dL Normal 0.2-1.0 [facility] Comment on above: Performed By: #### L IPID, URIC, CMP #### [facility] [address] [address] [address] Sam Szymanski Calcium [Mass/Vol] 8.9 mg/dL Normal 8.5-10.1 [facility] Comment on above: Performed By: #### L IPID, URIC, CMP #### [facility] [address] [address] [address] Sam Szymanski Chloride [Moles/Vol] 107 mmol/L Normal 98-107 [facility] Comment on above: Performed By: #### L IPID, URIC, CMP #### [facility] [address] [address] [address] Sam Szymanski CO2 [Moles/Vol] 26.2 mmol/L Normal 21.0-32.0 [facility] Comment on above: Performed By: #### L IPID, URIC, CMP #### [facility] [address] [address] [address] Sam Szymanski Creatinine [Mass/Vol] 1.12 mg/dL Normal 0.70-1.30 [facility] Comment on above: Performed By: #### L IPID, URIC, CMP #### [facility] [address] [address] [address] Sam Szymanski EGFR-AF IRAQI >60 Normal >=60 [facility] Comment on above: Performed By: #### L IPID, URIC, CMP #### [facility] [address] [address] [address] Sam Szymanski EGFR-NON AF IRAQI >60 Normal >=60 [facility] Comment on above: Performed By: #### L IPID, URIC, CMP #### [facility] [address] [address] [address] Sam Szymanski Globulin (S) [Mass/Vol] 2.9 g/dL Normal [facility] Comment on above: Performed By: #### L IPID, URIC, CMP #### [facility] [address] [address] [address] Sam Szymanski Glucose [Mass/Vol] 112 mg/dL Critically high 74-106 [facility] Comment on above: Performed By: #### L IPID, URIC, CMP #### [facility] [address] [address] [address] Sam Szymanski Potassium [Moles/Vol] 4.0 mmol/L Normal 3.5-5.1 [facility] Comment on above: Performed By: #### L IPID, URIC, CMP #### [facility] [address] [address] [address] Sam Szymanski Protein [Mass/Vol] 6.6 g/dL Normal 6.4-8.2 [facility] Comment on above: Performed By: #### L IPID, URIC, CMP #### [facility] [address] [address] [address] Sam Szymanski Sodium [Moles/Vol] 139 mmol/L Normal 136-145 [facility] Comment on above: Performed By: #### L IPID, URIC, CMP #### [facility] [address] [place] [address] Dr. Sam Szymanski Urea nitrogen [Mass/Vol] 10.0 mg/dL Normal 7.0-18.0 [facility] Comment on above: Performed By: #### L IPID, URIC, CMP #### [facility] [address] [place] [address] Dr. Sam Szymanski Urea nitrogen/Creatinine [Mass ratio] 8.9 mg/mg Normal [facility] Comment on above: Performed By: #### L IPID, URIC, CMP #### [facility] [address] [place] [address] Dr. Sam Szymanski URIC ACID SERUMon 02-11-2022 Urate [Mass/Vol] 7.3 mg/dL Critically high 3.5-7.2 [facility] Comment on above: Performed By: #### L IPID, URIC, CMP #### [facility] [address] [place] [address] Dr. Sam Szymanski Outside Colonoscopyon 2021 Outside Colonoscopy [id number]# 1.00CD:127 Normal [facility] Reminderson 10-17-2021 Reminders - From: Angelica Pinedo LPN To: GSN - Clinical; Sent: 10/17/2021 15:19:49 EDT Show up: 09/17/2031 07:00:00 EDT Subject: colonoscopy recall Due Date/Time: 10/17/2031 07:00:00 EDT Reminder/Recall Patient is due for screening colonoscopy 10/17/2031. Normal [facility] Pre-Certification Formon Pre-Certification Form [id number] #1.00CD:127 [facility] Consent for Procedure/Surger yon 08-22-2021 Consent for Procedure/Surgery [id number]# 1.00CD:127 Normal [facility] Facesheeton 08-22-2021 Facesheet [id number]# 1.00CD:127 [facility] Ambulatory Visit Summaryon 0 08-21-2021 Ambulatory [...] History of diverticulitis Kidney stone Ureteral stone [facility] Physician Referralon 022 Physician Referral [id number] #1.00CD:127 Normal [facility] Lab Reportson 07-03-2021 Lab Reports [id number] #1.00CD:127 Normal [facility] Lab Reportson 06-29-2021 Lab Reports [id number] #1.00CD:127 Normal [facility] RAD - MISCon 05-27-2021 RAD - MISC [id number] #1.00CD:127 Normal [facility] Vital Signs Date Time Vital Sign Value Performing Clinician Neal ortiz 08-21-2021 14:17-0400 Blood Pressure Location [facility] [place] 08-21-2021 14:17-0400 Diastolic blood pressure 88 mm[Hg] Laura NILL [facility] [place] 08-21-2021 14:17-0400 Heart rate 76 /min Laura NILL [facility] [place] 08-21-2021 14:17-0400 Respiratory rate 16 /min Laura NILL [facility] [place] 08-21-2021 14:17-0400 Systolic blood pressure 116 mm[Hg] Laura SmashChartL [facility] [place] Encounters Encounter Date Encounter Type Care Provider Facility Start: 05-01-2023 End: 05-01-2023 ambulatory LEVI ORTEGA Not Available Start: 08-18-2022 End: 08-19-2022 ambulatory DOMINGA KELLY Facility:[facility] Start: 02-26-2022 End: 02-26-2022 ambulatory DOMINGA KELLY Facility:[facility] Start: 02-12-2022 Encounter for genera l adult medical examination without abnormal findings DR DINA HAMMER . [facility] Start: 02-11-2022 End: 02-12-[address] DINA HAMMER . Facility:[facility] Start: 02-11-2022 End: 02-12-2022 Encounter for general adult medical examination without abnormal findings DR DINA HAMMER . Facility:[facility] Start: 10-16-2021 End: 10-16-[address] LAURA SELBY . Facility:[facility] Start: 10-12-[address] LAURA SELBY . Facil ity:[facility] Start: 08-21-2021 End: 08-21-2021 Patient encounter procedure Laura SELBY General Surgery [facility] [place] Procedures Date Procedure Procedure Detail Performing Clinician Start: 02-11-2022 PSA screening DOMINGA PRIDE Comment on above: Performed By: #### P [facility] #### [facility] [address] [place] [address] Dr. Sam Szymanski Start: 05-12-2012 Colonoscopy Laura MARCIAL Lithotripsy Laura SELBY Tonsillectomy Laura SELBY Immunizations Immunization Date Immunization Notes Care Provider Fa cilisydni NEGATED: Highlighted row has not occurred!08-21-2021 influenza virus vaccine, unspecified formulation Laura SELBY [facility] [place] Payers Date Payer Category Payer Unknown [id number] [id number] 1960 Unknown [id number] [id number] [id number] 1960 Unknown [id number] 2.16.84 [id number] 1960 Unknown [id number] 2.16.84 [id number] 1960 Unknown [id number] 2.16.84 [id number] 1960 Unknown [id number] 1959 Unknown [id number] Social History Date Type Detail Facility Start: 08-21-2021 Tobacco smoking status Ex-smoker (fi nding) [facility] [place] Tobacco smoking status Smokeless tobacco user within last 30 days [facility] [place] Sex Assigned At Male [facility] [place] Clinical Note 10-16-2021 Note Date & Type Note Facility 10-16-2021 Note [facility] [place] [place] NAME: STERLING RAPHAEL DATE OF : MEDICAL REC#: [id number] HEAVY FORGER: [address] [facility], TRANS[facility]MIT DATE: 10/16/2021 08:05:00 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 10/23/2021 08:32:00 [facility] Clinical Note 08-21-2021 Note Date & [...] vaccine, inactivated - Not Given Patient Refuses [facility] Comment on above: Result Comment: Elec tronically Signed By: LILA GUSMAN, Laura Murcia\Date and Time Signed: 08/21/21 16:36 EDT Evaluation + Plan note Note Date & Type Note Facility Evaluation + Plan note No data available for this section [facility] [place] [facility] Discharge instructions Note Date & Type Note Facility Hospital Discharge instructions No data available for this section [facility] [place] Summary Purpose Family History No Family History Records FoundNo Family History Records FoundNo Family History Records Found Advance Directives No Advanced Directives Records FoundNo Advanced Directives Records FoundNo Advanced Directives Records Found Additional Source Comments (unrecognized sect ion and content) No Status Records FoundNo Status Records FoundNo Status Records Found INFORMATION SOURCE (unrecogn ized section and content) DATE CREATED AUTHOR 10/22/2021 [facility] DATE CREATED AUTHOR AUTHOR'S ORGANIZ ATION 08/27/2022 [facility] DATE CREATED AUTHOR AUTHOR'S ORGANIZ ATION 05/03/2023 [facility] [...] BE BASED ON THE PRIMARY CLINICAL RECORDS. [facility] [employer] [facility]. provides no warranty or guarantee of the accuracy or completeness of information in this document.
--- NOTE | 2023-06-12 09:19 | CA_ITS ---
Patient Name: STERLING RAPHAEL MR#: [id number] : 1960 Exam Date: 06/12/2023 Ordering Doctor: DR Chino Hammer . ECHOCARDIOGRAM REPORT PROCEDURE: CA ECHO DOPPLER COMPLETE INDICATIONS: DYSPNEA COMPARISON: None. DESCRIPTION: COMPLETE ECHOCARDIOGRAM Real-time transthoracic echocardiography with 2D, M-mode, spectral and color flow Doppler performed. QUALITY: Technical quality was adequate. 71 , 308#, BSA 2.53 m2 LEFT VENTRICLE: Normal chamber size. Moderate concentric left ventricular hypertrophy. LV EF: Normal left ventricular ejection fraction, (>55%). DIASTOLIC: Normal diastolic function. ATRIAL SEPTUM: LEFT ATRIUM: Normal chamber size. RIGHT ATRIUM: Normal chamber size. RIGHT VENTRICLE: Normal chamber size. Normal right ventricular systolic function. TRICUSPID VALVE: Normal mobility and thickness. No stenosis with no regurgitation. MITRAL VALVE: Normal mobility and thickness. No evidence of mitral valve stenosis. There is no mitral annular calcification. No mitral regurgitation. AORTIC VALVE: Normal trileaflet appearance. No visible sclerosis. Normal leaflet mobility. No evidence of aortic valve stenosis. Trivial aortic regurgitation. AORTIC ROOT: Normal diameter and appearance. PULMONIC VALVE: Not well visualized. No stenosis. No regurgitation. PERICARDIUM: No evidence of pericardial effusion. IVC: Not well visualized. PLEURA: CONCLUSION: 1. Moderate concentric left ventricular hypertrophy with normal systolic function. LVEF is 60%. 2. Normal right ventricular size and systolic function. 3. No significant valvular dysfunction. 4. No pericardial effusion. Adult Echocardiography Procedure Report Left Ventricle LVEDD (3.7 - 5.6 cm): 4.42 cm LVESD (2.2 - 4.0 cm): 3.43 cm LVIVS thickness (0.6 - 1.2 cm): 1.43 cm LVPW thickness (0.5 - 1.0 cm): 1.47 cm e': 0.11 m/s E - e': 5.16 LVOT Max Gradient: 3.08 mm[Hg] LVOT Area (cm2): 0.88 m/s Peak Velocity (LVOT): 0.88 m/s Mean Velocity (LVOT): 0.62 m/s LVOT Diameter 2.57 cm Left Atrium LA Volume Index (2D A2C): 15.71 ml/m2 Left Atrium Systolic Dimension: 4.38 cm Mitral Valve MV E to A Ratio: 0.86 Mitral Valve A-Wave Peak Velocity: 0.64 m/s Mitral Valve E-Wave Peak Velocity: 0.55 m/s Right Ventricle Aorta AO Root Diam: 3.61 cm Ascending Ao Diam: 3.46 cm Aortic Valve AoV Area (Peak Adalid): 4.57 cm2, 4.57 cm2 AoV Area (VTI): 4.28 cm2, 4.28 cm2 Peak Velocity(Antegrade Flow): 0.99 m/s Peak Gradient(Antegrade Flow): 3.94 mm[Hg] Mean Velocity(Antegrade Flow): 0.71 m/s Mean Gradient(Antegrade Flow): 2.31 mm[Hg] Velocity Time Integral: 22.72 cm Tricuspid Valve Pulmonic Valve Peak Velocity: 0.73 m/s Peak Gradient: 2.26 mm[Hg], 2.05 mm[Hg] Right Atrium Right Atrium Systolic Pressure: 30.43 ml, 30.43 ml Dictated by: Ryan Nieto M.D. on 06/12/2023 at 18:28 Approved by: Ryan Nieto M.D. on 06/12/2023 at 18:30
--- OUTSIDE RECORDS SUMMARY | 2023-06-24 10:05 | XMS_ITS | CCD ---
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 (1 source) Drug allergy [facility] Work Phone: Medications Current Medications Medication Drug [...] GEORGE NAVARRO Date: 2022-08-18 19:53 Normal [facility] Covid-19 PCR (CVDTB)on SARS-CoV-2 (COVID-19) RNA LUÍS+probe Ql (Unsp spec) Not detected Normal NOT DETECTED [facility] Comment on above: Result Comment: This test is not yet approved or cleared by the [place] FDA. When there are no FDA-approved or cleared tests available, and other criteria are met, FDA can make tests available under an emergency access mechanism called an Emergency Use Authorization (EUA). The EUA for this test is supported by the Logistics Operations Manager of Health and Human Service's (HHS's) [...] SARS-CoV-2. Performed By: #### C VDTBH #### [facility] [address] [place] [address] Dr. Sam Szymanski INSULINon 02-12-2022 Insulin 16.5 uIU/mL Normal 2.6-24.9 [facility] Comment on above: Performed By: #### I NSULIN #### [facility] [address] [place] [address] Dr. Sam Szymanski CBC AUTO DIFFon 02-11-2022 BASO # 0.1 103/ul Normal 0.0-0.1 [facility] Comment on above: Performed By: #### C BC #### [facility] [address] [place] [address] Dr. Sam Szymanski Basophils/100 WBC (Bld) 1.0 % Normal 0.2-2.0 [facility] Comment on above: Performed By: #### C BC #### [facility] [address] [place] [address] Dr. Sam Szymanski EO # 0.1 103/ul Normal 0.0-0.7 [facility] Comment on above: Performed By: #### C BC #### [facility] [address] [place] [address] Dr. Sam Szymanski Eosinophils/100 WBC (Bld) 2.5 % Normal 0.9-7.0 [facility] Comment on above: Performed By: #### C BC #### [facility] [address] [place] [address] Dr. Sam Szymanski Erythrocyte distribution width (RBC) [Ratio] 12.7 % Normal 11.0-15.0 [facility] Comment on above: Performed By: #### C BC #### [facility] [address] [place] [address] Dr. Sam Szymanski Hematocrit (Bld) [Volume fraction] 45.3 % Normal 42.0-54.0 [facility] Comment on above: Performed By: #### C BC #### [facility] [address] [place] [address] Dr. Sam Szymanski Hemoglobin (Bld) [Mass/Vol] 15.2 g/dL Normal 14.0-18.0 [facility] Comment on above: Performed By: #### C BC #### [facility] [address] [place] [address] Dr. Sam Szymanski IG # 0.01 10e3/ul Normal 0.00-0.03 [facility] Comment on above: Performed By: #### C BC #### [facility] [address] [place] [address] Dr. Sam Szymanski IG % 0.2 % Normal 0.0-0.5 [facility] Comment on above: Performed By: #### C BC #### [facility] [address] [place] [address] Dr. Sam Szymanski LYMPH # 1.7 103/ul Normal 1.2-3.8 [facility] Comment on above: Performed By: #### C BC #### [facility] [address] [place] [address] Dr. Sam Szymanski Lymphocytes/100 WBC (Bld) 36.0 % Normal 20.5-60.0 [facility] Comment on above: Performed By: #### C BC #### [facility] [address] [place] [address] Dr. Sam Szymanski MANUAL DIFF REQ NO Normal [facility] Comment on above: Performed By: #### C BC #### [facility] [address] [place] [address] Dr. Sam Szymanski MCH (RBC) [Entitic mass] 32.5 pg Normal 25.9-34.0 [facility] Comment on above: Performed By: #### C BC #### [facility] [address] [place] [address] Dr. Sam Szyamnski MCHC (RBC) [Mass/Vol] 33.6 g/dL Normal 29.9-35.2 [facility] Comment on above: Performed By: #### C BC #### [facility] [address] [address] [address] Sam Szymanski MCV (RBC) [Entitic vol] 96.8 fL Critically high 80.0-94.0 [facility] Comment on above: Performed By: #### C BC #### [facility] [address] [address] [address] Sam Szmyanski MONO # 0.4 103/ul Normal 0.3-0.8 [facility] Comment on above: Performed By: #### C BC #### [facility] [address] [address] [address] Sam Szymanski Monocytes/100 WBC (Bld) 7.4 % Normal 1.7-12.0 [facility] Comment on above: Performed By: #### C BC #### [facility] [address] [address] [address] Sam Szymanski NEUT # 2.6 103/ul Normal 1.4-6.5 [facility] Comment on above: Performed By: #### C BC #### [facility] [address] [address] [address] Sam Szymanski Neutrophils/100 WBC (Bld) 52.9 % Normal 43.0-75.0 [facility] Comment on above: Performed By: #### C BC #### [facility] [address] [address] [address] Sam Szymanski Platelet mean volume (Bld) [Entitic vol] 9.9 fL Normal 9.5-13.5 [facility] Comment on above: Performed By: #### C BC #### [facility] [address] [address] [address] Sam Szymanski PLT 204 103/ul Normal 150-450 [facility] Comment on above: Performed By: #### C BC #### [facility] [id number] Sam Szymanski RBC 4.68 106/ul Critically low 4.70-6.10 [facility] Comment on above: Performed By: #### C BC #### [facility] [address] [address] [address] Sam Szymanski WBC 4.8 103/ul Normal 4.0-11.0 [facility] Comment on above: Performed By: #### C BC #### [facility] [address] [address] [address] Sam Szymanski GLYCOHEMOGLOBIN A1Con 2021 ADA RECOMMENDATION SEE BELOW Normal [facility] [place] Comment on above: Result Comment: ADA RECOMMENDED LIMIT 4.0 - 6.0 ADA THERAPEUTIC TARGET < 7.0 ACTION SUGGESTED > 7.0 Performed By: #### A 1C #### [facility] [address] [place] [address] Dr. Sam Szymanski Glucose [Mass/Vol] 117 mg/dL Normal [facility] [place] Comment on above: Performed By: #### A 1C #### [facility] [address] [place] [address] Dr. Sam Szymanski HbA1c (Bld) [Mass fraction] 5.7 % Normal 4.5-6.2 [facility] Comment on above: Performed By: #### A 1C #### [facility] [address] [place] [address] Dr. Sam Szymanski LIPID PROFILEon 02-11-2022 CHOL-HDL RATIO NORM SEE BELOW Normal [facility] Comment on above: Result Comment: 3.3 - 4.4 LOW RISK 4.4 - 7.1 AVERAGE RISK 7.1 - 11.0 MODERATE RISK >11.0 HIGH RISK Performed By: #### L IPID, URIC, CMP #### [facility] [address] [place] [address] Dr. Sam Szymanski Cholesterol [Mass/Vol] 224 mg/dL Critically high <=200 [facility] Comment on above: Performed By: #### L IPID, URIC, CMP #### [facility] [address] [place] [address] Dr. Sam Szymanski Cholesterol in HDL [Mass/Vol] 46 mg/dL Normal 40-60 [facility] Comment on above: Performed By: #### L IPID, URIC, CMP #### [facility] [address] [address] [address] Sam Szymanski Cholesterol in LDL [Mass/Vol] 119.4 mg/dL Normal [facility] Comment on above: Performed By: #### L IPID, URIC, CMP #### [facility] [address] [address] [address] Sam Szymanski Cholesterol.total/Cho lesterol in HDL [Mass ratio] 4.9 {ratio} Normal [facility] Comment on above: Performed By: #### L IPID, URIC, CMP #### [facility] [address] [address] [address] Sam Szymanski HDL NORMAL > or = 60 mg/dl - LOW CARDIOVASCULAR RISK <40 mg/dl - HIGH CARDIOVASCULAR RISK Normal [facility] Comment on above: Performed By: #### L IPID, URIC, CMP #### [facility] [address] [address] [address] Sam Szymanski LDL CALC NORMAL SEE BELOW Normal [facility] Comment on above: Result Comment: <100 mg/dl OPTIMAL 100 - 129 mg/dl NEAR OR ABOVE OPTIMAL 130 - 159 mg/dl BORDERLINE HIGH 160 - 189 mg/dl HIGH >190 mg/dl VERY HIGH Performed By: #### L IPID, URIC, CMP #### [facility] [address] [address] [address] Sam Szymanski Triglyceride [Mass/Vol] 293 mg/dL Critically high <=150 [facility] Comment on above: Performed By: #### L IPID, URIC, CMP #### [facility] [address] [address] [address] Sam Szymanski VLDL CALC 58.6 mg/dL Normal [facility] Comment on above: Performed By: #### L IPID, URIC, CMP #### [facility] [address] [address] [address] Sam Szymanski PROF 14(COMP METB)on 022 Albumin [Mass/Vol] 3.7 g/dL Normal 3.4-5.0 [facility] [place] Comment on above: Performed By: #### L IPID, URIC, CMP #### [facility] [address] [address] [address] Sam Szymanski Albumin/Globulin [Mass ratio] 1.3 {ratio} Normal [facility] Comment on above: Performed By: #### L IPID, URIC, CMP #### [facility] [address] [address] [address] Sam Szymanski ALP [Catalytic activity/Vol] 101 U/L Normal 46-116 [facility] Comment on above: Performed By: #### L IPID, URIC, CMP #### [facility] [address] [address] [address] Sam Szymanski ALT [Catalytic activity/Vol] 45 U/L Normal 16-63 [facility] Comment on above: Performed By: #### L IPID, URIC, CMP #### [facility] [address] [address] [address] Sam Szymanski Anion gap [Moles/Vol] 9.8 mmol/L Normal [facility] Comment on above: Performed By: #### L IPID, URIC, CMP #### [facility] [address] [address] [address] Sam Szymanski AST [Catalytic activity/Vol] 23 U/L Normal 15-37 [facility] Comment on above: Performed By: #### L IPID, URIC, CMP #### [facility] [address] [address] [address] Sam Szymanski Bilirubin [Mass/Vol] 0.5 mg/dL Normal 0.2-1.0 [facility] Comment on above: Performed By: #### L IPID, URIC, CMP #### [facility] [address] [address] [address] Sam Szymanski Calcium [Mass/Vol] 8.9 mg/dL Normal 8.5-10.1 [facility] Comment on above: Performed By: #### L IPID, URIC, CMP #### [facility] [address] [address] [address] Sam Szymanski Chloride [Moles/Vol] 107 mmol/L Normal 98-107 [facility] Comment on above: Performed By: #### L IPID, URIC, CMP #### [facility] [address] [address] [address] Sam Szymanski CO2 [Moles/Vol] 26.2 mmol/L Normal 21.0-32.0 [facility] Comment on above: Performed By: #### L IPID, URIC, CMP #### [facility] [address] [address] [address] Sam Szymanski Creatinine [Mass/Vol] 1.12 mg/dL Normal 0.70-1.30 [facility] Comment on above: Performed By: #### L IPID, URIC, CMP #### [facility] [address] [address] [address] Sam Szymanski EGFR-AF TAJIK >60 Normal >=60 [facility] Comment on above: Performed By: #### L IPID, URIC, CMP #### [facility] [address] [address] [address] Sam Szymanski EGFR-NON AF TAJIK >60 Normal >=60 [facility] Comment on above: Performed By: #### L IPID, URIC, CMP #### [facility] [address] [address] [address] Sam Szymanski Globulin (S) [Mass/Vol] 2.9 g/dL Normal [facility] Comment on above: Performed By: #### L IPID, URIC, CMP #### [facility] [address] [address] [address] Sam Szymanski Glucose [Mass/Vol] 112 mg/dL Critically high 74-106 [facility] Comment on above: Performed By: #### L IPID, URIC, CMP #### [facility] [address] [address] [address] Sma Szymanski Potassium [Moles/Vol] 4.0 mmol/L Normal 3.5-5.1 [facility] Comment on above: Performed By: #### L IPID, URIC, CMP #### [facility] [address] [address] [address] Sam Szymanski Protein [Mass/Vol] 6.6 g/dL Normal 6.4-8.2 [facility] [place] Comment on above: Performed By: #### L IPID, URIC, CMP #### [facility] [address] [address] [address] Sam Szymanski Sodium [Moles/Vol] 139 mmol/L Normal 136-145 [facility] [place] Comment on above: Performed By: #### L IPID, URIC, CMP #### [facility] [address] [place] [address] Dr. Sam Szymanski Urea nitrogen [Mass/Vol] 10.0 mg/dL Normal 7.0-18.0 [facility] Comment on above: Performed By: #### L IPID, URIC, CMP #### [facility] [address] [place] [address] Dr. Sam Szymanski Urea nitrogen/Creatinine [Mass ratio] 8.9 mg/mg Normal [facility] Comment on above: Performed By: #### L IPID, URIC, CMP #### [facility] [address] [place] [address] Dr. Sam Szymanski URIC ACID SERUMon 02-11-2022 Urate [Mass/Vol] 7.3 mg/dL Critically high 3.5-7.2 [facility] Comment on above: Performed By: #### L IPID, URIC, CMP #### [facility] [address] [place] [address] Dr. Sam Szymnaski Outside Colonoscopyon 2021 Outside Colonoscopy [id number]# 1.00CD:127 Normal [facility] Reminderson 10-17-2021 Reminders - From: Angelica Pinedo LPN To: [facility] - Clinical; Sent: 10/17/2021 15:19:49 EDT Show up: 09/17/2031 07:00:00 EDT Subject: colonoscopy recall Due Date/Time: 10/17/2031 07:00:00 EDT Reminder/Recall Patient is due for screening colonoscopy 10/17/2031. Normal [facility] Pre-Certification Formon Pre-Certification Form [id number] #1.00CD:127 [facility] Consent for Procedure/Surger yon 08-22-2021 Consent for Procedure/Surgery [id number]# 1.00CD:127 Normal [facility] Facesheeton 08-22-2021 Facesheet [id number]# 1.00CD:127 [facility] Ambulatory Visit Summaryon 0 08-21-2021 Ambulatory Visit [...] History of diverticulitis Kidney stone Ureteral stone [facility] Physician Referralon 022 Physician Referral [id number] #1.00CD:127 Normal [facility] Lab Reportson 07-03-2021 Lab Reports [id number] #1.00CD:127 Normal [facility] Lab Reportson 06-29-2021 Lab Reports [id number] #1.00CD:127 Normal [facility] RAD - MISCon 05-27-2021 RAD - MISC [id number] #1.00CD:127 Normal [facility] Vital Signs Date Time Vital Sign Value Performing Clinician Neal ortiz 08-21-2021 14:17-0400 Blood Pressure Location [facility] 08-21-2021 14:17-0400 Diastolic blood pressure 88 mm[Hg] Laura NILL [facility] 08-21-2021 14:17-0400 Heart rate 76 /min Laura NILL [facility] 08-21-2021 14:17-0400 Respiratory rate 16 /min Laura NILL [facility] 08-21-2021 14:17-0400 Systolic blood pressure 116 mm[Hg] Laura [employer] [facility] Encounters Encounter Date Encounter Type Care Provider Facility Start: 05-01-2023 End: 05-01-2023 ambulatory LEVI ORTEGA Not Available Start: 08-18-2022 End: 08-19-2022 ambulatory DOMINGA KELLY Facility:[facility] Start: 02-26-2022 End: 02-26-2022 ambulatory DOMINGA KELLY Facility:[facility] Start: 02-12-2022 Encounter for genera l adult medical examination without abnormal findings DR DINA HAMMER . [facility] Start: 02-11-2022 End: 02-12-[address] DINA HAMMER . Facility:[facility] Start: 02-11-2022 End: 02-12-2022 Encounter for general adult medical examination without abnormal findings DR DINA HAMMER . Facility:[facility] Start: 10-16-2021 End: 10-16-[address] LAURA SELBY . Facility:[facility] Start: 10-12-[address] LAURA SELBY . Facil ity:[facility] Start: 08-21-2021 End: 08-21-2021 Patient encounter procedure Laura SELBY General Surgery [facility] Procedures Date Procedure Procedure Detail Performing Clinician Start: 02-11-2022 PSA screening DOMINGA PRIDE Comment on above: Performed By: #### [facility] #### [facility] [address] [place] [address] Dr. Sam Szymanski Start: 05-12-2012 Colonoscopy Laura MARCIAL Lithotripsy Laura SELBY Tonsillectomy Laura SELBY Immunizations Immunization Date Immunization Notes Care Provider Fa cilisydni NEGATED: Highlighted row has not occurred!08-21-2021 influenza virus vaccine, unspecified formulation Laura SELBY [facility] Payers Date Payer Category Payer Unknown [id number] [id number] [id number] 1960 Unknown [id number] 2.16.84 [id number] 1960 Unknown [id number] 2.16.84 [id number] 1960 Unknown [id number] 2.16.84 [id number] 1960 Unknown [id number] 2.16.84 [id number] 1960 Unknown [id number] 1959 Unknown [id number] Social History Date Type Detail Facility Start: 08-21-2021 Tobacco smoking status Ex-smoker (fi nding) [facility] Tobacco smoking status Smokeless tobacco user within last 30 days [facility] Sex Assigned At Male [facility] Clinical Note 10-16-2021 Note Date & Type Note Facility 10-16-2021 Note [facility] [place], [place] NAME: STERLING RAPHAEL DATE OF : MEDICAL REC#: [id number] GENERAL DENTIST: [id number] [facility], TRANSADMIT DATE: 10/16/2021 08:05:00 NEONATAL SOCIAL WORKER DATE: 10/16/2021 21:00 DICTATING PHYSICIAN: LAURA SELBY [...] by: DR LAURA SELBY . 10/23/2021 08:32:00 [facility] Clinical Note 08-21-2021 Note Date & [...] vaccine, inactivated - Not Given Patient Refuses [facility] Comment on above: Result Comment: Elec tronically Signed By: LILA GUSMAN, Laura Mucria\Date and Time Signed: 08/21/21 16:36 EDT Evaluation + Plan note Note Date & Type Note Facility Evaluation + Plan note No data available for this section [facility] Discharge instructions Note Date & Type Note Facility Hospital Discharge instructions No data available for this section [facility] Summary Purpose Family History No Family History Records FoundNo Family History Records FoundNo Family History Records Found Advance Directives No Advanced Directives Records FoundNo Advanced Directives Records FoundNo Advanced Directives Records Found Additional Source Comments (unrecognized sect ion and content) No Status Records FoundNo Status Records FoundNo Status Records Found INFORMATION SOURCE (unrecogn ized section and content) DATE CREATED AUTHOR 10/22/2021 [facility] DATE CREATED AUTHOR AUTHOR'S ORGANIZ ATION 08/27/2022 [facility] DATE CREATED AUTHOR AUTHOR'S ORGANIZ ATION 05/03/2023 [facility] FOR RECORDS PERTAINING TO PATIENTS WHO [...] BE BASED ON THE PRIMARY CLINICAL RECORDS. [facility]. provides no warranty or guarantee of the accuracy or completeness of information in this document.
--- NOTE | 2023-07-01 15:34 | P.STRESS_ITS ---
Stress Test Stress Test Requesting physician: Chino Hammer Procedure: Exercise stress test General Information: Reason for Stress Test: Dyspnea Cardiac History and Risk Factors: Father had heart failure Resting 12 - Lead Electrocardiogram: Rate & rhythm: Normal sinus at a rate of 87. [place]: Normal T-waves: Biphasic in I and inverted in aVL ST-segments:Normal orientation Stress Test: Protocol: Saad protocol was followed. Exercise capacity: Fair exercise capacity. Total exercise time of 5 minutes 57 seconds reached Saad stage 2 at 2.5MPH, 12% grade, & 7 METs. Blood pressure: Initial: 112/80, Maximum: 200/98, Recovery: 124/78 Rate & rhythm: Patient remained in sinus rhythm during the exercise and recovery portions of the study.? The maximum heart rate was 136, which was 86% of the maximum predicted heart rate 157. ST-segments & T-waves: There were no T-wave changes and no ST-segment changes when compared to the baseline EKG. Patient response/symptoms: Dyspnea was reported, unknown if reproducible of chief complaint. Interpretation: Normal exercise stress test without electrocardiographical evidence of ischemia. Apparently asymptomatic of chief complaint. Bah treadmill score is 6, which places patient in a low risk category. Clinical correlation required.
== END 2023-06-24 09:44 | disposition home or self-care (01) ==
LOC: CARD 09:43
PROVIDERS: PCP Family Medicine; Visit Provider Family Medicine
DX: R06.00 Dyspnea, unspecified (principal)
CPT/HCPCS: 93306

== ENCOUNTER 2023-07-01 06:40 | Outpatient (OUT) | payer BC, SELFPAY ==
--- OUTSIDE RECORDS SUMMARY | 2023-07-01 06:43 | XMS_ITS | CCD ---
Author Name Unknown Address [facility] [id number] [place] [address] Organization [facility] Care Team Providers Care Corporate Services Manager Name Role Phone Dina Hammer Primary Care Physician [phone] DOMINGA KELLY Admitting Unavailable DOMINGA KELLY Attending Unavailable DOMINGA KELLY Consulting Unavailable HOY ., DR ARROYO Primary Care Unavailable GEORGE NAVARRO Consulting Unavailable NILL ., DR SANCHEZ Attending Unavailable NILL ., DR SANCHEZ Consulting Unavailable NILL ., DR SANCHEZ Admitting Unavailable HOY ., DR ARROYO Primary Care Unavailable AGUBOSIVIANCA Echvaarria Consulting Unavailable CECIL ROWELL Consulting Unavailable NILL [...] substance Discharge from eye (finding) [facility] Work Phone: NEGATED: Highlighted row has been ruled out! (1 source) Drug allergy [facility] Work Phone: Medications Current Medications Medication Drug [...] GEORGE NAVARRO Date: 2022-08-18 19:53 Normal [facility] Covid-19 PCR (CVDTB)on SARS-CoV-2 (COVID-19) RNA LUÍS+probe Ql (Unsp spec) Not detected Normal NOT DETECTED [facility] Comment on above: Result Comment: This test is not yet approved or cleared by the [place] FDA. When there are no FDA-approved or cleared tests available, and other criteria are met, FDA can make tests available under an emergency access mechanism called an Emergency Use Authorization (EUA). The EUA for this test is supported by the Rn Circulating of Health and Human Service's (HHS's) declaration [...] SARS-CoV-2. Performed By: #### C VDTBH #### [facility] [address] [place] [address] Dr. Sam Szymanski INSULINon 02-12-2022 Insulin 16.5 uIU/mL Normal 2.6-24.9 [facility] Comment on above: Performed By: #### I NSULIN #### [facility] [address] [place] [address] Dr. Sam Szymanski CBC AUTO DIFFon 02-11-2022 BASO # 0.1 103/ul Normal 0.0-0.1 [facility] Comment on above: Performed By: #### C BC #### [facility] [address] [place] [address] Dr. Sam Szymanski Basophils/100 WBC (Bld) 1.0 % Normal 0.2-2.0 [facility] Comment on above: Performed By: #### C BC #### [facility] [address] [place] [address] Dr. Sam Szymanski EO # 0.1 103/ul Normal 0.0-0.7 [facility] Comment on above: Performed By: #### C BC #### [facility] [address] [place] [address] Dr. Sam Szymanski Eosinophils/100 WBC (Bld) 2.5 % Normal 0.9-7.0 [facility] Comment on above: Performed By: #### C BC #### [facility] [address] [place] [address] Dr. Sam Szymanski Erythrocyte distribution width (RBC) [Ratio] 12.7 % Normal 11.0-15.0 [facility] Comment on above: Performed By: #### C BC #### [facility] [address] [place] [address] Dr. Sam Szymanski Hematocrit (Bld) [Volume fraction] 45.3 % Normal 42.0-54.0 [facility] Comment on above: Performed By: #### C BC #### [facility] [address] [place] [address] Dr. Sam Szymanski Hemoglobin (Bld) [Mass/Vol] 15.2 g/dL Normal 14.0-18.0 [facility] Comment on above: Performed By: #### C BC #### [facility] [address] [place] [address] Dr. Sam Szymanski IG # 0.01 10e3/ul Normal 0.00-0.03 [facility] Comment on above: Performed By: #### C BC #### [facility] [address] [place] [address] Dr. Sam Szymanski IG % 0.2 % Normal 0.0-0.5 [facility] Comment on above: Performed By: #### C BC #### [facility] [address] [place] [address] Dr. Sam Szymanski LYMPH # 1.7 103/ul Normal 1.2-3.8 [facility] Comment on above: Performed By: #### C BC #### [facility] [address] [place] [address] Dr. Sam Szymanski Lymphocytes/100 WBC (Bld) 36.0 % Normal 20.5-60.0 [facility] Comment on above: Performed By: #### C BC #### [facility] [address] [place] [address] Dr. Sam Szymanski MANUAL DIFF REQ NO Normal [facility] Comment on above: Performed By: #### C BC #### [facility] [address] [place] [address] Dr. Sam Szymanski MCH (RBC) [Entitic mass] 32.5 pg Normal 25.9-34.0 [facility] Comment on above: Performed By: #### C BC #### [facility] [address] [place] [address] Dr. Sam Szymanski MCHC (RBC) [Mass/Vol] 33.6 g/dL Normal 29.9-35.2 [facility] Comment on above: Performed By: #### C BC #### [facility] [address] [address] [address] Sam Szymanski MCV (RBC) [Entitic vol] 96.8 fL Critically high 80.0-94.0 [facility] Comment on above: Performed By: #### C BC #### [facility] [address] [address] [address] Sam Szymanski MONO # 0.4 103/ul Normal 0.3-0.8 [facility] Comment on above: Performed By: #### C BC #### [facility] [address] [address] [address] Sam Szymanski Monocytes/100 WBC (Bld) 7.4 % Normal 1.7-12.0 [facility] Comment on above: Performed By: #### C BC #### [facility] [address] [address] [address] Sam Szymanski NEUT # 2.6 103/ul Normal 1.4-6.5 [facility] Comment on above: Performed By: #### C BC #### [facility] [address] [address] [address] Sam Szymanski Neutrophils/100 WBC (Bld) 52.9 % Normal 43.0-75.0 [facility] Comment on above: Performed By: #### C BC #### [facility] [address] [address] [address] Sam Szymanski Platelet mean volume (Bld) [Entitic vol] 9.9 fL Normal 9.5-13.5 [facility] Comment on above: Performed By: #### C BC #### [facility] [address] [address] [address] Sam Szymanski PLT 204 103/ul Normal 150-450 [facility] Comment on above: Performed By: #### C BC #### [facility] [id number] Sam Szymanski RBC 4.68 106/ul Critically low 4.70-6.10 [facility] Comment on above: Performed By: #### C BC #### [facility] [address] [address] [address] Sam Szymanski WBC 4.8 103/ul Normal 4.0-11.0 [facility] Comment on above: Performed By: #### C BC #### [facility] [address] [address] [address] Sam Szymanski GLYCOHEMOGLOBIN A1Con 2021 ADA RECOMMENDATION SEE BELOW Normal [facility] Comment on above: Result Comment: ADA RECOMMENDED LIMIT 4.0 - 6.0 ADA THERAPEUTIC TARGET < 7.0 ACTION SUGGESTED > 7.0 Performed By: #### A 1C #### [facility] [address] [place] [address] Dr. Sam Szymanski Glucose [Mass/Vol] 117 mg/dL Normal [facility] Comment on above: Performed By: #### A 1C #### [facility] [address] [place] [address] Dr. Sam Szymanski HbA1c (Bld) [Mass fraction] 5.7 % Normal 4.5-6.2 [facility] Comment on above: Performed By: #### A 1C #### [facility] [address] [place] [address] Dr. Sam Szymanski LIPID PROFILEon 02-11-2022 CHOL-HDL RATIO NORM SEE BELOW Normal [facility] Comment on above: Result Comment: 3.3 - 4.4 LOW RISK 4.4 - 7.1 AVERAGE RISK 7.1 - 11.0 MODERATE RISK >11.0 HIGH RISK Performed By: #### L IPID, URIC, CMP #### [facility] [address] [place] [address] Dr. Sam Szymanski Cholesterol [Mass/Vol] 224 mg/dL Critically high <=200 [facility] Comment on above: Performed By: #### L IPID, URIC, CMP #### [facility] [address] [place] [address] Dr. Sam Szymanski Cholesterol in HDL [Mass/Vol] 46 mg/dL Normal 40-60 [facility] Comment on above: Performed By: #### L IPID, URIC, CMP #### [facility] [address] [address] [address] Sam Szymanski Cholesterol in LDL [Mass/Vol] 119.4 mg/dL Normal [facility] Comment on above: Performed By: #### L IPID, URIC, CMP #### [facility] [address] [address] [address] Sam Szymanski Cholesterol.total/Cho lesterol in HDL [Mass ratio] 4.9 {ratio} Normal [facility] Comment on above: Performed By: #### L IPID, URIC, CMP #### [facility] [address] [address] [address] Sam Szymanski HDL NORMAL > or = 60 mg/dl - LOW CARDIOVASCULAR RISK <40 mg/dl - HIGH CARDIOVASCULAR RISK Normal [facility] Comment on above: Performed By: #### L IPID, URIC, CMP #### [facility] [address] [address] [address] Sam Szymanski LDL CALC NORMAL SEE BELOW Normal [facility] Comment on above: Result Comment: <100 mg/dl OPTIMAL 100 - 129 mg/dl NEAR OR ABOVE OPTIMAL 130 - 159 mg/dl BORDERLINE HIGH 160 - 189 mg/dl HIGH >190 mg/dl VERY HIGH Performed By: #### L IPID, URIC, CMP #### [facility] [address] [address] [address] Sam Szymanski Triglyceride [Mass/Vol] 293 mg/dL Critically high <=150 [facility] Comment on above: Performed By: #### L IPID, URIC, CMP #### [facility] [address] [address] [address] Sam Szymanski VLDL CALC 58.6 mg/dL Normal [facility] Comment on above: Performed By: #### L IPID, URIC, CMP #### [facility] [address] [address] [address] Sam Szymanski PROF 14(COMP METB)on 022 Albumin [Mass/Vol] 3.7 g/dL Normal 3.4-5.0 [facility] Comment on above: Performed By: #### L IPID, URIC, CMP #### [facility] [address] [address] [address] Sam Szymanski Albumin/Globulin [Mass ratio] 1.3 {ratio} Normal [facility] Comment on above: Performed By: #### L IPID, URIC, CMP #### [facility] [address] [address] [address] Sam Szymanski ALP [Catalytic activity/Vol] 101 U/L Normal 46-116 [facility] Comment on above: Performed By: #### L IPID, URIC, CMP #### [facility] [address] [address] [address] Sam Szymanski ALT [Catalytic activity/Vol] 45 U/L Normal 16-63 [facility] Comment on above: Performed By: #### L IPID, URIC, CMP #### [facility] [address] [address] [address] Sam Szymanski Anion gap [Moles/Vol] 9.8 mmol/L Normal [facility] Comment on above: Performed By: #### L IPID, URIC, CMP #### [facility] [address] [address] [address] Sam Szymanski AST [Catalytic activity/Vol] 23 U/L Normal 15-37 [facility] Comment on above: Performed By: #### L IPID, URIC, CMP #### [facility] [address] [address] [address] Sam Szymanski Bilirubin [Mass/Vol] 0.5 mg/dL Normal 0.2-1.0 [facility] Comment on above: Performed By: #### L IPID, URIC, CMP #### [facility] [address] [address] [address] Sam Szymanski Calcium [Mass/Vol] 8.9 mg/dL Normal 8.5-10.1 [facility] Comment on above: Performed By: #### L IPID, URIC, CMP #### [facility] [address] [address] [address] Sam Szymanski Chloride [Moles/Vol] 107 mmol/L Normal 98-107 [facility] Comment on above: Performed By: #### L IPID, URIC, CMP #### [facility] [address] [address] [address] Sam Szymanski CO2 [Moles/Vol] 26.2 mmol/L Normal 21.0-32.0 [facility] Comment on above: Performed By: #### L IPID, URIC, CMP #### [facility] [address] [address] [address] Sam Szymanski Creatinine [Mass/Vol] 1.12 mg/dL Normal 0.70-1.30 [facility] Comment on above: Performed By: #### L IPID, URIC, CMP #### [facility] [address] [address] [address] Sam Szymanski EGFR-AF GABONESE >60 Normal >=60 [facility] Comment on above: Performed By: #### L IPID, URIC, CMP #### [facility] [address] [address] [address] Sam Szymanski EGFR-NON AF GABONESE >60 Normal >=60 [facility] Comment on above: Performed By: #### L IPID, URIC, CMP #### [facility] [address] [address] [address] Sam Szymanski Globulin (S) [Mass/Vol] 2.9 g/dL Normal [facility] Comment on above: Performed By: #### L IPID, URIC, CMP #### [facility] [address] [address] [address] Sam Szymanski Glucose [Mass/Vol] 112 mg/dL Critically high 74-106 [facility] Comment on above: Performed By: #### L IPID, URIC, CMP #### [facility] [address] [address] [address] Sam Szymanski Potassium [Moles/Vol] 4.0 mmol/L Normal 3.5-5.1 [facility] Comment on above: Performed By: #### L IPID, URIC, CMP #### [facility] [address] [address] [address] Sam Szymanski Protein [Mass/Vol] 6.6 g/dL Normal 6.4-8.2 [facility] Comment on above: Performed By: #### L IPID, URIC, CMP #### [facility] [address] [address] [address] Sam Szymanski Sodium [Moles/Vol] 139 mmol/L Normal 136-145 [facility] Comment on above: Performed By: #### L IPID, URIC, CMP #### [facility] [address] [place] [address] Dr. Sam Szymanski Urea nitrogen [Mass/Vol] 10.0 mg/dL Normal 7.0-18.0 [facility] Comment on above: Performed By: #### L IPID, URIC, CMP #### [facility] [address] [place] [address] Dr. Sam Szymanski Urea nitrogen/Creatinine [Mass ratio] 8.9 mg/mg Normal [facility] Comment on above: Performed By: #### L IPID, URIC, CMP #### [facility] [address] [place] [address] Dr. Sam Szymanski URIC ACID SERUMon 02-11-2022 Urate [Mass/Vol] 7.3 mg/dL Critically high 3.5-7.2 [facility] Comment on above: Performed By: #### L IPID, URIC, CMP #### [facility] [address] [place] [address] Dr. Sam Szymanski Outside Colonoscopyon 2021 Outside Colonoscopy [id number]# 1.00CD:127 Normal [facility] Reminderson 10-17-2021 Reminders - From: Angelica Pinedo LPN To: GSN - Clinical; Sent: 10/17/2021 15:19:49 EDT Show up: 09/17/2031 07:00:00 EDT Subject: colonoscopy recall Due Date/Time: 10/17/2031 07:00:00 EDT Reminder/Recall Patient is due for screening colonoscopy 10/17/2031. Normal [facility] Pre-Certification Formon Pre-Certification Form [id number] #1.00CD:127 [facility] Consent for Procedure/Surger yon 08-22-2021 Consent for Procedure/Surgery [id number]# 1.00CD:127 Normal [facility] Facesheeton 08-22-2021 Facesheet [id number]# 1.00CD:127 [facility] Ambulatory Visit Summaryon 0 08-21-2021 Ambulatory [...] History of diverticulitis Kidney stone Ureteral stone [facility] Physician Referralon 022 Physician Referral [id number] #1.00CD:127 Normal [facility] Lab Reportson 07-03-2021 Lab Reports [id number] #1.00CD:127 Normal [facility] 06-29-2021 Lab Reports [id number] #1.00CD:127 Normal [facility] RAD - MISCon 05-27-2021 RAD - MISC [id number] #1.00CD:127 Normal [facility] Vital Signs Date Time Vital Sign Value Performing Clinician Neal ortiz 08-21-2021 14:17-0400 Blood Pressure Location [employer] [facility] 08-21-2021 14:17-0400 Diastolic blood pressure 88 mm[Hg] Laura NILL [facility] 08-21-2021 14:17-0400 Heart rate 76 /min Laura NILL [facility] 08-21-2021 14:17-0400 Respiratory rate 16 /min Laura NILL [facility] 08-21-2021 14:17-0400 Systolic blood pressure 116 mm[Hg] Laura [employer] [facility] Encounters Encounter Date Encounter Type Care Provider Facility Start: 05-01-2023 End: 05-01-2023 ambulatory LEVI ORTEGA Not Available Start: 08-18-2022 End: 08-19-2022 ambulatory DOMINGA KELLY Facility:[facility] Start: 02-26-2022 End: 02-26-2022 ambulatory DOMINGA KELLY Facility:[facility] Start: 02-12-2022 Encounter for genera l adult medical examination without abnormal findings DR DINA HAMMER . [facility] Start: 02-11-2022 End: 02-12-[address] DINA HAMMER . Facility:[facility] Start: 02-11-2022 End: 02-12-2022 Encounter for general adult medical examination without abnormal findings DR DINA HAMMER . Facility:[facility] Start: 10-16-2021 End: 10-16-[address] LAURA SELBY . Facility:[facility] Start: 10-12-[address] LAURA SELBY . Facil ity:[facility] Start: 08-21-2021 End: 08-21-2021 Patient encounter procedure Laura SELBY [facility] Procedures Date Procedure Procedure Detail Performing Clinician Start: 02-11-2022 PSA screening DOMINGA PRIDE Comment on above: Performed By: #### P [facility] #### [facility] [address] [place] [address] Dr. Sam Szymanski Start: 05-12-2012 Colonoscopy Laura MARCIAL Lithotripsy Laura SELBY Tonsillectomy Laura SELBY Immunizations Immunization Date Immunization Notes Care Provider Fa cilisydni NEGATED: Highlighted row has not occurred!08-21-2021 influenza virus vaccine, unspecified formulation Laura SELBY [facility] Payers Date Payer Category Payer Unknown [id number] [id number] [id number] 1960 Unknown [id number] 2.16.84 [id number] 1960 Unknown [id number] 2.16.84 [id number] 1960 Unknown [id number] 2.16.84 [id number] 1960 Unknown [id number] 2.16.84 [id number] 1960 Unknown [id number] 1959 Unknown [id number] Social History Date Type Detail Facility Start: 08-21-2021 Tobacco smoking status Ex-smoker (fi nding) [facility] Tobacco smoking status Smokeless tobacco user within last 30 days [facility] Sex Assigned At Male [facility] Clinical Note 10-16-2021 Note Date & Type Note Facility 10-16-2021 Note [facility] [place] NAME: STERLING RAPHAEL DATE OF : MEDICAL REC#: [id number] ASSISTANT FILM EDITOR: [id number] [facility], TRANS[facility]MIT DATE: 10/16/2021 08:05:00 CRIMINAL INTELLIGENCE SPECIALIST DATE: 10/16/2021 21:00 DICTATING PHYSICIAN: LAURA [...] by: DR LAURA SELBY . 10/23/2021 08:32:00 [facility] Clinical Note 08-21-2021 Note Date & Type [...] vaccine, inactivated - Not Given Patient Refuses [facility] Comment on above: Result Comment: Elec tronically Signed By: LILA GUSMAN, Laura Murcia\Date and Time Signed: 08/21/21 16:36 EDT Evaluation + Plan note Note Date & Type Note Facility Evaluation + Plan note No data available for this section [facility] Discharge instructions Note Date & Type Note Facility Hospital Discharge instructions No data available for this section [facility] Summary Purpose Family History No Family History Records FoundNo Family History Records FoundNo Family History Records Found Advance Directives No Advanced Directives Records FoundNo Advanced Directives Records FoundNo Advanced Directives Records Found Additional Source Comments (unrecognized sect ion and content) No Status Records FoundNo Status Records FoundNo Status Records Found INFORMATION SOURCE (unrecogn ized section and content) DATE CREATED AUTHOR 10/22/2021 [facility] DATE CREATED AUTHOR AUTHOR'S ORGANIZ ATION 08/27/2022 [facility] DATE CREATED AUTHOR AUTHOR'S ORGANIZ ATION 05/03/2023 [facility] FOR RECORDS PERTAINING TO PATIENTS [...] BE BASED ON THE PRIMARY CLINICAL RECORDS. [facility]. provides no warranty or guarantee of the accuracy or completeness of information in this document.
--- NOTE | 2023-07-01 15:34 | P.STRESS_ITS ---
Stress Test Stress Test Requesting physician: Chino Hammer Procedure: Exercise stress test General Information: Reason for Stress Test: Dyspnea Cardiac History and Risk Factors: Father had heart failure Resting 12 - Lead Electrocardiogram: Rate & rhythm: Normal sinus at a rate of 87. [place]: Normal T-waves: Biphasic in I and inverted in aVL ST-segments:Normal orientation Stress Test: Protocol: Saad protocol was followed. Exercise capacity: Fair exercise capacity. Total exercise time of 5 minutes 57 seconds reached Saad stage 2 at 2.5MPH, 12% grade, & 7 METs. Blood pressure: Initial: 112/80, Maximum: 200/98, Recovery: 124/78 Rate & rhythm: Patient remained in sinus rhythm during the exercise and recovery portions of the study.? The maximum heart rate was 136, which was 86% of the maximum predicted heart rate 157. ST-segments & T-waves: There were no T-wave changes and no ST-segment changes when compared to the baseline EKG. Patient response/symptoms: Dyspnea was reported, unknown if reproducible of chief complaint. Interpretation: Normal exercise stress test without electrocardiographical evidence of ischemia. Apparently asymptomatic of chief complaint. Bah treadmill score is 6, which places patient in a low risk category. Clinical correlation required.
== END 2023-07-01 06:41 | disposition home or self-care (01) ==
LOC: CARD 06:41
PROVIDERS: PCP Family Medicine; Visit Provider Family Medicine
DX: R06.00 Dyspnea, unspecified (principal)
CPT/HCPCS: 93017

== ENCOUNTER 2024-02-29 20:32 | Outpatient (OUT) | payer BC, SELFPAY ==
--- OUTSIDE RECORDS SUMMARY | 2024-02-29 20:54 | XMS_ITS | CCD ---
Author Organization [facility] Care Team Providers Care Erisa Attorney Name Role Phone Dina Hammer Primary Care Physician [phone] DOMINGA KELLY Admitting Unavailable DOMINGA KELLY Attending Unavailable DOMINGA KELLY Consulting Unavailable HOY ., DR ARROYO Primary Care Unavailable GEORGE NAVARRO Consulting Unavailable NILL ., DR SANCHEZ Attending Unavailable NILL ., DR SANCHEZ Consulting Unavailable NILL ., DR SANCHEZ Admitting Unavailable HOY ., DR ARROYO Primary Care Unavailable VIANCA CURTIS Consulting Unavailable CECIL ROWELL Consulting Unavailable NILL [...] substance Discharge from eye (finding) [facility] Work Phone: NEGATED: Highlighted row has been ruled out! (1 source) Drug allergy [facility] Work Phone: Medications Current Medications Medication Drug [...] ity [place] DOP LEG LTon 08-19-19 [place] DOP LEG LT EXAMINATION: US [...] GEORGE NAVARRO Date: 2022-08-18 19:53 Normal [facility] Covid-19 PCR (CVDTBH)on SARS-CoV-2 (COVID-19) RNA LUÍS+probe Ql (Unsp spec) Not detected Normal NOT DETECTED [facility] Comment on above: Result Comment: This test is not yet approved or cleared by the [place] FDA. When there are no FDA-approved or cleared tests available, and other criteria are met, FDA can make tests available under an emergency access mechanism called an Emergency Use Authorization (EUA). The EUA for this test is supported by the [place] of Health and Human Service's (HHS's) declaration [...] SARS-CoV-2. Performed By: #### C VDTBH #### [facility] [address] [place] [address] Dr. Sam Szymanski INSULINon 02-12-2022 Insulin 16.5 uIU/mL Normal 2.6-24.9 [facility] Comment on above: Performed By: #### I NSULIN #### [facility] [address] [place] [address] Dr. Sam Szymanski CBC AUTO DIFFon 02-11-2022 BASO # 0.1 103/ul Normal 0.0-0.1 [facility] Comment on above: Performed By: #### C BC #### [facility] [address] [place] [address] Dr. Sam Szymanski Basophils/100 WBC (Bld) 1.0 % Normal 0.2-2.0 [facility] Comment on above: Performed By: #### C BC #### [facility] [address] [place] [address] Dr. Sam Szymanski EO # 0.1 103/ul Normal 0.0-0.7 [facility] Comment on above: Performed By: #### C BC #### [facility] [address] [place] [address] Dr. Sam Szymanski Eosinophils/100 WBC (Bld) 2.5 % Normal 0.9-7.0 [facility] Comment on above: Performed By: #### C BC #### [facility] [address] [place] [address] Dr. Sam Szymanski Erythrocyte distribution width (RBC) [Ratio] 12.7 % Normal 11.0-15.0 [facility] Comment on above: Performed By: #### C BC #### [facility] [address] [place] [address] Dr. Sam Szymanski Hematocrit (Bld) [Volume fraction] 45.3 % Normal 42.0-54.0 [facility] Comment on above: Performed By: #### C BC #### [facility] [address] [place] [address] Dr. Sam Szymanski Hemoglobin (Bld) [Mass/Vol] 15.2 g/dL Normal 14.0-18.0 [facility] Comment on above: Performed By: #### C BC #### [facility] [address] [place] [address] Dr. Sam Szymanski IG # 0.01 10e3/ul Normal 0.00-0.03 [facility] Comment on above: Performed By: #### C BC #### [facility] [address] [place] [address] Dr. Sam Szymanski IG % 0.2 % Normal 0.0-0.5 [facility] Comment on above: Performed By: #### C BC #### [facility] [address] [place] [address] Dr. Sam Szymanski LYMPH # 1.7 103/ul Normal 1.2-3.8 [facility] Comment on above: Performed By: #### C BC #### [facility] [address] [place] [address] Dr. Sam Szymasnki Lymphocytes/100 WBC (Bld) 36.0 % Normal 20.5-60.0 [facility] Comment on above: Performed By: #### C BC #### [facility] [address] [place] [address] Dr. Sam Szymanski MANUAL DIFF REQ NO Normal [facility] Comment on above: Performed By: #### C BC #### [facility] [address] [place] [address] Dr. Sam Szymanski MCH (RBC) [Entitic mass] 32.5 pg Normal 25.9-34.0 [facility] Comment on above: Performed By: #### C BC #### [facility] [address] [place] [address] Dr. Sam Szymanski MCHC (RBC) [Mass/Vol] 33.6 g/dL Normal 29.9-35.2 [facility] Comment on above: Performed By: #### C BC #### [facility] [id number] Sam Szymanski MCV (RBC) [Entitic vol] 96.8 fL Critically high 80.0-94.0 [facility] Comment on above: Performed By: #### C BC #### [facility] [address] [address] [address] Sam Szymanski MONO # 0.4 103/ul Normal 0.3-0.8 [facility] Comment on above: Performed By: #### C BC #### [facility] [address] [address] [address] Sam Szymanski Monocytes/100 WBC (Bld) 7.4 % Normal 1.7-12.0 [facility] Comment on above: Performed By: #### C BC #### [facility] [address] [address] [address] Sam Szymanski NEUT # 2.6 103/ul Normal 1.4-6.5 [facility] Comment on above: Performed By: #### C BC #### [facility] [address] [address] [address] Sam Szymanski Neutrophils/100 WBC (Bld) 52.9 % Normal 43.0-75.0 [facility] Comment on above: Performed By: #### C BC #### [facility] [address] [address] [address] Sam Szymanski Platelet mean volume (Bld) [Entitic vol] 9.9 fL Normal 9.5-13.5 [facility] Comment on above: Performed By: #### C BC #### [facility] [address] [address] [address] Sam Szymanski PLT 204 103/ul Normal 150-450 [facility] Comment on above: Performed By: #### C BC #### [facility] [id number] Sam Szymanski RBC 4.68 106/ul Critically low 4.70-6.10 [facility] Comment on above: Performed By: #### C BC #### [facility] [address] [address] [address] Sam Szymanski WBC 4.8 103/ul Normal 4.0-11.0 [facility] Comment on above: Performed By: #### C BC #### [facility] [address] [address] [address] Sam Szymanski GLYCOHEMOGLOBIN A1Con 2021 ADA RECOMMENDATION SEE BELOW Normal [facility] Comment on above: Result Comment: ADA RECOMMENDED LIMIT 4.0 - 6.0 ADA THERAPEUTIC TARGET < 7.0 ACTION SUGGESTED > 7.0 Performed By: #### A 1C #### [facility] [address] [address] [address] Sam Szymanski Glucose [Mass/Vol] 117 mg/dL Normal [facility] Comment on above: Performed By: #### A 1C #### [facility] [address] [place] [address] Dr. Sam Szymanski HbA1c (Bld) [Mass fraction] 5.7 % Normal 4.5-6.2 [facility] Comment on above: Performed By: #### A 1C #### [facility] [address] [place] [address] Dr. Sam Szymanski LIPID PROFILEon 02-11-2022 CHOL-HDL RATIO NORM SEE BELOW Normal [facility] Comment on above: Result Comment: 3.3 - 4.4 LOW RISK 4.4 - 7.1 AVERAGE RISK 7.1 - 11.0 MODERATE RISK >11.0 HIGH RISK Performed By: #### L IPID, URIC, CMP #### [facility] [address] [address] [address] Sam Szymanski Cholesterol [Mass/Vol] 224 mg/dL Critically high <=200 [facility] Comment on above: Performed By: #### L IPID, URIC, CMP #### [facility] [address] [address] [address] Sam Szymanski Cholesterol in HDL [Mass/Vol] 46 mg/dL Normal 40-60 [facility] Comment on above: Performed By: #### L IPID, URIC, CMP #### [facility] [address] [address] [address] Sam Szymanski Cholesterol in LDL [Mass/Vol] 119.4 mg/dL Normal [facility] Comment on above: Performed By: #### L IPID, URIC, CMP #### [facility] [address] [address] [address] Sam Szymanski Cholesterol.total/Cho lesterol in HDL [Mass ratio] 4.9 {ratio} Normal [facility] Comment on above: Performed By: #### L IPID, URIC, CMP #### [facility] [address] [address] [address] Sam Szymanski HDL NORMAL > or = 60 mg/dl - LOW CARDIOVASCULAR RISK <40 mg/dl - HIGH CARDIOVASCULAR RISK Normal [facility] Comment on above: Performed By: #### L IPID, URIC, CMP #### [facility] [address] [place] [address] Dr. Sam Szymanski LDL CALC NORMAL SEE BELOW Normal [facility] Comment on above: Result Comment: <100 mg/dl OPTIMAL 100 - 129 mg/dl NEAR OR ABOVE OPTIMAL 130 - 159 mg/dl BORDERLINE HIGH 160 - 189 mg/dl HIGH >190 mg/dl VERY HIGH Performed By: #### L IPID, URIC, CMP #### [facility] [address] [address] [address] Sam Szymanski Triglyceride [Mass/Vol] 293 mg/dL Critically high <=150 [facility] Comment on above: Performed By: #### L IPID, URIC, CMP #### [facility] [address] [address] [address] Sam Szymanski VLDL CALC 58.6 mg/dL Normal [facility] Comment on above: Performed By: #### L IPID, URIC, CMP #### [facility] [address] [address] [address] Sam Szymanski PROF 14(COMP METB)on 022 Albumin [Mass/Vol] 3.7 g/dL Normal 3.4-5.0 [facility] Comment on above: Performed By: #### L IPID, URIC, CMP #### [facility] [address] [place] [address] Dr. Sam Szymanski Albumin/Globulin [Mass ratio] 1.3 {ratio} Normal [facility] Comment on above: Performed By: #### L IPID, URIC, CMP #### [facility] [address] [address] [address] Sam Szymanski ALP [Catalytic activity/Vol] 101 U/L Normal 46-116 [facility] Comment on above: Performed By: #### L IPID, URIC, CMP #### [facility] [address] [address] [address] Sam Szymanski ALT [Catalytic activity/Vol] 45 U/L Normal 16-63 [facility] Comment on above: Performed By: #### L IPID, URIC, CMP #### [facility] [address] [place] [address] Dr. Sam Szymanski Anion gap [Moles/Vol] 9.8 mmol/L Normal [facility] Comment on above: Performed By: #### L IPID, URIC, CMP #### [facility] [address] [place] [address] Dr. Sam Szymanski AST [Catalytic activity/Vol] 23 U/L Normal 15-37 [facility] Comment on above: Performed By: #### L IPID, URIC, CMP #### [facility] [address] [place] [address] Dr. Sam Szymanski Bilirubin [Mass/Vol] 0.5 mg/dL Normal 0.2-1.0 [facility] Comment on above: Performed By: #### L IPID, URIC, CMP #### [facility] [address] [place] [address] Dr. Sam Szymanski Calcium [Mass/Vol] 8.9 mg/dL Normal 8.5-10.1 [facility] Comment on above: Performed By: #### L IPID, URIC, CMP #### [facility] [address] [place] [address] Dr. Sam Szymanski Chloride [Moles/Vol] 107 mmol/L Normal 98-107 [facility] Comment on above: Performed By: #### L IPID, URIC, CMP #### [facility] [address] [address] [address] Sam Szymanski CO2 [Moles/Vol] 26.2 mmol/L Normal 21.0-32.0 [facility] Comment on above: Performed By: #### L IPID, URIC, CMP #### [facility] [address] [address] [address] Sam Szymanski Creatinine [Mass/Vol] 1.12 mg/dL Normal 0.70-1.30 [facility] Comment on above: Performed By: #### L IPID, URIC, CMP #### [facility] [address] [address] [address] Sam Szymanski EGFR-AF [place]ER >60 Normal >=60 [facility] Comment on above: Performed By: #### L IPID, URIC, CMP #### [facility] [address] [address] [address] Sam Szymanski EGFR-NON AF [place] >60 Normal >=60 [facility] Comment on above: Performed By: #### L IPID, URIC, CMP #### [facility] [address] [address] [address] Sam Szymanski Globulin (S) [Mass/Vol] 2.9 g/dL Normal [facility] Comment on above: Performed By: #### L IPID, URIC, CMP #### [facility] [address] [address] [address] Sam Szymanski Glucose [Mass/Vol] 112 mg/dL Critically high 74-106 T [facility] Comment on above: Performed By: #### L IPID, URIC, CMP #### [facility] [address] [address] [address] Sam Szymanski Potassium [Moles/Vol] 4.0 mmol/L Normal 3.5-5.1 [facility] Comment on above: Performed By: #### L IPID, URIC, CMP #### [facility] [address] [address] [address] Sam Szymanski Protein [Mass/Vol] 6.6 g/dL Normal 6.4-8.2 [facility] Comment on above: Performed By: #### L IPID, URIC, CMP #### [facility] [address] [address] [address] Sam Szymanski Sodium [Moles/Vol] 139 mmol/L Normal 136-145 [facility] Comment on above: Performed By: #### L IPID, URIC, CMP #### [facility] [address] [address] [address] Sam Szymanski Urea nitrogen [Mass/Vol] 10.0 mg/dL Normal 7.0-18.0 [facility] Comment on above: Performed By: #### L IPID, URIC, CMP #### [facility] [address] [address] [address] Sam Szymanski Urea nitrogen/Creatinine [Mass ratio] 8.9 mg/mg Normal [facility] Comment on above: Performed By: #### L IPID, URIC, CMP #### [facility] [address] [address] [address] Sam Szymanski URIC ACID SERUMon 02-11-2022 Urate [Mass/Vol] 7.3 mg/dL Critically high 3.5-7.2 [facility] Comment on above: Performed By: #### L IPID, URIC, CMP #### [facility] [address] [address] [address] Sam Szymanski Outside Colonoscopyon 2021 Outside Colonoscopy [id number]# 1.00CD:127 Normal [facility] Reminderson 10-17-2021 Reminders - From: Angelica Pinedo LPN To: GSN - Clinical; Sent: 10/17/2021 15:19:49 EDT Show up: 09/17/2031 07:00:00 EDT Subject: colonoscopy recall Due Date/Time: 10/17/2031 07:00:00 EDT Reminder/Recall Patient is due for screening colonoscopy 10/17/2031. Normal [facility] Pre-Certification Formon Pre-Certification Form [id number] #1.00CD:127 Normal [facility] Consent for Procedure/Surger yon 08-22-2021 Consent for Procedure/Surgery [id number]# 1.00CD:127 Normal [facility] Facesheeton 08-22-2021 Facesheet [id number]# 1.00CD:127 [facility] Ambulatory Visit Summaryon 0 08-21-2021 Ambulatory [...] of diverticulitis Kidney stone Ureteral stone Normal [facility] Physician Referralon 022 Physician Referral [id number] #1.00CD:127 [facility] Lab Reportson 07-03-2021 Lab Reports [id number] #1.00CD:127 Normal [facility] Lab Reportson 06-29-2021 Lab Reports [id number] #1.00CD:127 Normal [facility] RAD - MISCon 05-27-2021 RAD - MISC [id number] #1.00CD:127 Normal [facility] Vital Signs Date Time Vital Sign Value Performing Clinician Neal ortiz 08-21-2021 14:17-0400 Blood Pressure Location Laura NILL [facility] 08-21-2021 14:17-0400 Diastolic blood pressure 88 mm[Hg] Laura NILL [facility] 08-21-2021 14:17-0400 Heart rate 76 /min Laura NILL [facility] 08-21-2021 14:17-0400 Respiratory rate 16 /min Laura NILL [facility] 08-21-2021 14:17-0400 Systolic blood pressure 116 mm[Hg] Laura NILL [facility] Encounters Encounter Date Encounter Type Care Provider Facility Start: 05-01-2023 End: 05-01-2023 ambulatory LEVI ORTEGA Not Available Start: 08-18-2022 End: 08-19-2022 ambulatory DOMINGA KELLY Facility:[facility] Start: 02-26-2022 End: 02-26-2022 ambulatory DOMINGA KELLY Facility:[facility] Start: 02-12-2022 Encounter for genera l adult medical examination without abnormal findings DR DINA HAMMER . [facility] Start: 02-11-2022 End: 02-12-[address] DINA HAMMER . Facility:[facility] Start: 02-11-2022 End: 02-12-2022 Encounter for general adult medical examination without abnormal findings DR DINA HAMMER . Facility:[facility] Start: 10-16-2021 End: 10-16-[address] LAURA SELBY . Facility:[facility] Start: 10-12-[address] LAURA SELBY . Facil ity:[facility] Start: 08-21-2021 End: 08-21-2021 Patient encounter procedure Laura SELBY [facility] Procedures Date Procedure Procedure Detail Performing Clinician Start: 02-11-2022 PSA screening DOMINGA PRIDE Comment on above: Performed By: #### P [facility] #### [facility] [address] [place] [address] Dr. Sam Szymanski Start: 05-12-2012 Colonoscopy Laura MARCIAL Lithotripsy Laura SELBY Tonsillectomy Laura SELBY Immunizations Immunization Date Immunization Notes Care Provider Fa cilisydni NEGATED: Highlighted row has not occurred!08-21-2021 influenza virus vaccine, unspecified formulation Laura SELBY [facility] Payers Date Payer Category Payer Unknown [id number] 2.16.84 [id number] 1960 Unknown [id number] 2.16.84 [id number] 1960 Unknown [id number] 2.16.84 [id number] 1960 Unknown [id number] 2.16.84 [id number] 1960 Unknown [id number] 2.16.84 [id number] 1960 Unknown [id number] 1959 Unknown [id number] Social History Date Type Detail Facility Start: 08-21-2021 Tobacco smoking status Ex-smoker (fi nding) [facility] Tobacco smoking status Smokeless tobacco user within last 30 days [facility] Sex Assigned At Male [facility] Clinical Note 10-16-2021 Note Date & Type Note Facility 10-16-2021 Note [facility] [place], [place] NAME: STERLING RAPHAEL DATE OF : MEDICAL REC#: [id number] MEN'S SWIM COACH: [address] [facility], TRANSADMIT DATE: 10/16/2021 08:05:00 LICENSING ENGINEER DATE: 10/16/2021 21:00 DICTATING PHYSICIAN: LAURA SELBY [...] DR LAURA SELBY . 10/23/2021 08:32:00 [facility] Clinical Note 08-21-2021 Note Date & Type [...] vaccine, inactivated - Not Given Patient Refuses [facility] Comment on above: Result Comment: Elec tronically Signed By: LILA GUSMAN, Laura Murcia\Date and Time Signed: 08/21/21 16:36 EDT Evaluation + Plan note Note Date & Type Note Facility Evaluation + Plan note No data available for this section [facility] Discharge instructions Note Date & Type Note Facility Hospital Discharge instructions No data available for this section [facility] Summary Purpose Family History No Family History Records FoundNo Family History Records FoundNo Family History Records Found Advance Directives No Advanced Directives Records FoundNo Advanced Directives Records FoundNo Advanced Directives Records Found Additional Source Comments (unrecognized sect ion and content) No Status Records FoundNo Status Records FoundNo Status Records Found INFORMATION SOURCE (unrecogn ized section and content) DATE CREATED AUTHOR 10/22/2021 [facility] DATE CREATED AUTHOR AUTHOR'S ORGANIZ ATION 08/27/2022 [facility] DATE CREATED AUTHOR AUTHOR'S ORGANIZ ATION 05/03/2023 [facility] FOR RECORDS PERTAINING TO PATIENTS WHO ARE [...] BE BASED ON THE PRIMARY CLINICAL RECORDS. [facility]. provides no warranty or guarantee of the accuracy or completeness of information in this document.
== END 2024-02-29 20:33 | disposition home or self-care (01) ==
LOC: SLEEP 20:52
PROVIDERS: PCP Family Medicine; Visit Provider Family Medicine
DX: G47.33 Obstructive sleep apnea (adult) (pediatric) (principal); R53.83 Other fatigue
CPT/HCPCS: 95810

== ENCOUNTER 2024-03-28 19:53 | Outpatient (OUT) | payer BC, SELFPAY | END 2024-03-28 19:54 | disposition home or self-care (01) | LOC: SLEEP 19:53 | PROVIDERS: PCP Family Medicine; Visit Provider Family Medicine | DX: G47.33 Obstructive sleep apnea (adult) (pediatric) (principal) | CPT/HCPCS: 95811 ==

== ENCOUNTER 2024-12-29 06:39 | Outpatient (OUT) | payer BC, SELFPAY ==
--- OUTSIDE RECORDS SUMMARY | 2024-10-04 06:07 | XMS_ITS ---
Author Organization The [facility] in [place] Address [address] [place] [address] Care Team Providers Care Professor Of Early Childhood Education Name Role Phone Jonathon Hammer Primary Care Provider [phone] REASON FOR VISIT semaglutide Encounters Encounter Location Date Provider Diagnosis [facility] [address] [place] [address] 10/04/2024 Jonathon Hammer Plan Of Treatment No Information Progress Notes * Hussein RAPHAEL WDOB:1960 (64 yo M)Acc No.[id number]:10/04/2024 Patient: Hussein GIBSON :1960 A ge:64 Y S ex:Male Address:[address] [place] [address], [id number] * true * Date: Generated for Ev hutton/Nader/eTransmitting on: 0 12/29/2024 06:44 AM EDT
--- OUTSIDE RECORDS SUMMARY | 2024-11-15 07:02 | XMS_ITS ---
Author Organization [facility] in [place] Address [address] [place] [address] Care Team Providers Care Education Courses Sales Representative Name Role Phone Jonathon Hammer Primary Care Provider REASON FOR VISIT rf semaglutide Encounters Encounter Location Date Provider Diagnosis [facility] [address] [place] [address] 11/15/2024 Jonathon Hammer Plan Of Treatment No Information Progress Notes * Hussein RAPHAEL WDOB:1960 (64 yo M)Acc No.[id number]:11/15/2024 Patient: Hussein GIBSON :1960 A ge:64 Y S ex:Male Address:[address] [place] [address] , [place], [address] * true * Date: Generated for Ev hutton/Nader/eTransmitting on: 0 12/29/2024 06:44 AM EDT
--- OUTSIDE RECORDS SUMMARY | 2024-12-29 06:44 | XMS_ITS | CCD ---
Author Organization [facility] Team Providers Care Suede Cleaner Name Role Phone Dina Hammer Primary Care [...] substance Discharge from eye (finding) [facility] [place] Work Phone: NEGATED: Highlighted row has been ruled out! (1 source) Drug allergy [facility] [place] Work Phone: Medications Current Medications Medication Drug [...] GEORGE NAVARRO Date: 2022-08-18 19:53 Normal [facility] Covid-19 PCR (CVDTBH)on SARS-CoV-2 (COVID-19) RNA LUÍS+probe Ql (Unsp spec) Not detected Normal NOT DETECTED [facility] Comment on above: Result Comment: This test is not yet approved or cleared by the [place] FDA. When there are no FDA-approved or cleared tests available, and other criteria are met, FDA can make tests available under an emergency access mechanism called an Emergency Use Authorization (EUA). The EUA for this test is supported by the [place] of Health and Human Service's (HHS's) declaration [...] SARS-CoV-2. Performed By: #### C VDTBH #### [facility] [address] [place] [address] Dr. Sam Szymanski INSULINon 02-12-2022 Insulin 16.5 uIU/mL Normal 2.6-24.9 [facility] Comment on above: Performed By: #### I NSULIN #### [facility] [address] [place] [address] Dr. Sam Szymanski CBC AUTO DIFFon 02-11-2022 BASO # 0.1 103/ul Normal 0.0-0.1 [facility] Comment on above: Performed By: #### C BC #### [facility] [address] [place] [address] Dr. Sam Szymanski Basophils/100 WBC (Bld) 1.0 % Normal 0.2-2.0 [facility] Comment on above: Performed By: #### C BC #### [facility] [address] [place] [address] Dr. Sam Szymanski EO # 0.1 103/ul Normal 0.0-0.7 [facility] Comment on above: Performed By: #### C BC #### [facility] [address] [place] [address] Dr. Sam Szymanski Eosinophils/100 WBC (Bld) 2.5 % Normal 0.9-7.0 [facility] Comment on above: Performed By: #### C BC #### [facility] [address] [place] [address] Dr. Sam Szymanski Erythrocyte distribution width (RBC) [Ratio] 12.7 % Normal 11.0-15.0 [facility] Comment on above: Performed By: #### C BC #### [facility] [address] [place] [address] Dr. Sam Szymanski Hematocrit (Bld) [Volume fraction] 45.3 % Normal 42.0-54.0 [facility] Comment on above: Performed By: #### C BC #### [facility] [address] [place] [address] Dr. Sam Szymanski Hemoglobin (Bld) [Mass/Vol] 15.2 g/dL Normal 14.0-18.0 [facility] Comment on above: Performed By: #### C BC #### [facility] [address] [place] [address] Dr. Sam Szymanski IG # 0.01 10e3/ul Normal 0.00-0.03 [facility] Comment on above: Performed By: #### C BC #### [facility] [address] [place] [address] Dr. Sam Szymanski IG % 0.2 % Normal 0.0-0.5 [facility] Comment on above: Performed By: #### C BC #### [facility] [address] [place] [address] Dr. Sam Szymanski LYMPH # 1.7 103/ul Normal 1.2-3.8 [facility] Comment on above: Performed By: #### C BC #### [facility] [address] [place] [address] Dr. Sam Szymanski Lymphocytes/100 WBC (Bld) 36.0 % Normal 20.5-60.0 [facility] Comment on above: Performed By: #### C BC #### [facility] [address] [place] [address] Dr. Sam Szymanski MANUAL DIFF REQ NO Normal [facility] Comment on above: Performed By: #### C BC #### [facility] [address] [place] [address] Dr. Sam Szymanski MCH (RBC) [Entitic mass] 32.5 pg Normal 25.9-34.0 [facility] Comment on above: Performed By: #### C BC #### [facility] [address] [place] [address] Dr. Sam Szymanski MCHC (RBC) [Mass/Vol] 33.6 g/dL Normal 29.9-35.2 [facility] Comment on above: Performed By: #### C BC #### [facility] [id number] Sam Szymanski MCV (RBC) [Entitic vol] 96.8 fL Critically high 80.0-94.0 [facility] Comment on above: Performed By: #### C BC #### [facility] [address] [address] [address] Sam Szymanski MONO # 0.4 103/ul Normal 0.3-0.8 [facility] Comment on above: Performed By: #### C BC #### [facility] [address] [address] [address] Sam Szymanski Monocytes/100 WBC (Bld) 7.4 % Normal 1.7-12.0 [facility] Comment on above: Performed By: #### C BC #### [facility] [address] [address] [address] Sam Szymanski NEUT # 2.6 103/ul Normal 1.4-6.5 [facility] Comment on above: Performed By: #### C BC #### [facility] [address] [address] [address] Sam Szymanski Neutrophils/100 WBC (Bld) 52.9 % Normal 43.0-75.0 [facility] Comment on above: Performed By: #### C BC #### [facility] [address] [address] [address] Sam Szymanski Platelet mean volume (Bld) [Entitic vol] 9.9 fL Normal 9.5-13.5 [facility] Comment on above: Performed By: #### C BC #### [facility] [address] [address] [address] Sam Szymanski PLT 204 103/ul Normal 150-450 [facility] Comment on above: Performed By: #### C BC #### [facility] [id number] Sam Szymanski RBC 4.68 106/ul Critically low 4.70-6.10 [facility] Comment on above: Performed By: #### C BC #### [facility] [address] [address] [address] Sam Szymanski WBC 4.8 103/ul Normal 4.0-11.0 [facility] Comment on above: Performed By: #### C BC #### [facility] [address] [address] [address] Sam Szymanski GLYCOHEMOGLOBIN A1Con 2021 ADA RECOMMENDATION SEE BELOW Normal [facility] Comment on above: Result Comment: ADA RECOMMENDED LIMIT 4.0 - 6.0 ADA THERAPEUTIC TARGET < 7.0 ACTION SUGGESTED > 7.0 Performed By: #### A 1C #### [facility] [address] [address] [address] Sam Szymanski Glucose [Mass/Vol] 117 mg/dL Normal [facility] Comment on above: Performed By: #### A 1C #### [facility] [address] [place] [address] Dr. Sam Szymanski HbA1c (Bld) [Mass fraction] 5.7 % Normal 4.5-6.2 [facility] Comment on above: Performed By: #### A 1C #### [facility] [address] [place] [address] Dr. Sam Szymanski LIPID PROFILEon 02-11-2022 CHOL-HDL RATIO NORM SEE BELOW Normal [facility] Comment on above: Result Comment: 3.3 - 4.4 LOW RISK 4.4 - 7.1 AVERAGE RISK 7.1 - 11.0 MODERATE RISK >11.0 HIGH RISK Performed By: #### L IPID, URIC, CMP #### [facility] [address] [address] [address] Sam Szymanski Cholesterol [Mass/Vol] 224 mg/dL Critically high <=200 [facility] Comment on above: Performed By: #### L IPID, URIC, CMP #### [facility] [address] [address] [address] Sam Szymanski Cholesterol in HDL [Mass/Vol] 46 mg/dL Normal 40-60 [facility] Comment on above: Performed By: #### L IPID, URIC, CMP #### [facility] [address] [address] [address] Sam Szymanski Cholesterol in LDL [Mass/Vol] 119.4 mg/dL Normal [facility] Comment on above: Performed By: #### L IPID, URIC, CMP #### [facility] [address] [address] [address] Sam Szymanski Cholesterol.total/Cho lesterol in HDL [Mass ratio] 4.9 {ratio} Normal [facility] Comment on above: Performed By: #### L IPID, URIC, CMP #### [facility] [address] [address] [address] Sam Szymanski HDL NORMAL > or = 60 mg/dl - LOW CARDIOVASCULAR RISK <40 mg/dl - HIGH CARDIOVASCULAR RISK Normal [facility] Comment on above: Performed By: #### L IPID, URIC, CMP #### [facility] [address] [place] [address] Dr. Sam Szymanski LDL CALC NORMAL SEE BELOW Normal [facility] Comment on above: Result Comment: <100 mg/dl OPTIMAL 100 - 129 mg/dl NEAR OR ABOVE OPTIMAL 130 - 159 mg/dl BORDERLINE HIGH 160 - 189 mg/dl HIGH >190 mg/dl VERY HIGH Performed By: #### L IPID, URIC, CMP #### [facility] [address] [address] [address] Sam Szymanski Triglyceride [Mass/Vol] 293 mg/dL Critically high <=150 [facility] Comment on above: Performed By: #### L IPID, URIC, CMP #### [facility] [address] [address] [address] Sam Szymanski VLDL CALC 58.6 mg/dL Normal [facility] Comment on above: Performed By: #### L IPID, URIC, CMP #### [facility] [address] [address] [address] Sam Szymanski PROF 14(COMP METB)on 022 Albumin [Mass/Vol] 3.7 g/dL Normal 3.4-5.0 [facility] Comment on above: Performed By: #### L IPID, URIC, CMP #### [facility] [address] [place] [address] Dr. Sam Szymanski Albumin/Globulin [Mass ratio] 1.3 {ratio} Normal [facility] Comment on above: Performed By: #### L IPID, URIC, CMP #### [facility] [address] [address] [address] Sam Szymanski ALP [Catalytic activity/Vol] 101 U/L Normal 46-116 [facility] Comment on above: Performed By: #### L IPID, URIC, CMP #### [facility] [address] [address] [address] Sam Szymanski ALT [Catalytic activity/Vol] 45 U/L Normal 16-63 [facility] Comment on above: Performed By: #### L IPID, URIC, CMP #### [facility] [address] [place] [address] Dr. Sam Szymanski Anion gap [Moles/Vol] 9.8 mmol/L Normal [facility] Comment on above: Performed By: #### L IPID, URIC, CMP #### [facility] [address] [place] [address] Dr. Sam Szymanski AST [Catalytic activity/Vol] 23 U/L Normal 15-37 [facility] Comment on above: Performed By: #### L IPID, URIC, CMP #### [facility] [address] [place] [address] Dr. Sam Szymanski Bilirubin [Mass/Vol] 0.5 mg/dL Normal 0.2-1.0 [facility] Comment on above: Performed By: #### L IPID, URIC, CMP #### [facility] [address] [place] [address] Dr. Sam Szymanski Calcium [Mass/Vol] 8.9 mg/dL Normal 8.5-10.1 [facility] Comment on above: Performed By: #### L IPID, URIC, CMP #### [facility] [address] [place] [address] Dr. Sam Szymanski Chloride [Moles/Vol] 107 mmol/L Normal 98-107 [facility] Comment on above: Performed By: #### L IPID, URIC, CMP #### [facility] [address] [address] [address] Sam Szymanski CO2 [Moles/Vol] 26.2 mmol/L Normal 21.0-32.0 [facility] Comment on above: Performed By: #### L IPID, URIC, CMP #### [facility] [address] [address] [address] Sam Szymanski Creatinine [Mass/Vol] 1.12 mg/dL Normal 0.70-1.30 [facility] Comment on above: Performed By: #### L IPID, URIC, CMP #### [facility] [address] [address] [address] Sam Szymanski EGFR-AF NIUEAN >60 Normal >=60 [facility] Comment on above: Performed By: #### L IPID, URIC, CMP #### [facility] [address] [address] [address] Sam Szymanski EGFR-NON AF NIUEAN >60 Normal >=60 [facility] Comment on above: Performed By: #### L IPID, URIC, CMP #### [facility] [address] [address] [address] Sam Szymanski Globulin (S) [Mass/Vol] 2.9 g/dL Normal [facility] Comment on above: Performed By: #### L IPID, URIC, CMP #### [facility] [address] [address] [address] Sam Szymanski Glucose [Mass/Vol] 112 mg/dL Critically high 74-106 [facility] Comment on above: Performed By: #### L IPID, URIC, CMP #### [facility] [address] [address] [address] Sam Szymanski Potassium [Moles/Vol] 4.0 mmol/L Normal 3.5-5.1 [facility] Comment on above: Performed By: #### L IPID, URIC, CMP #### [facility] [address] [address] [address] Sam Szymanski Protein [Mass/Vol] 6.6 g/dL Normal 6.4-8.2 [facility] Comment on above: Performed By: #### L IPID, URIC, CMP #### [facility] [address] [address] [address] Sam Szymanski Sodium [Moles/Vol] 139 mmol/L Normal 136-145 [facility] Comment on above: Performed By: #### L IPID, URIC, CMP #### [facility] [address] [address] [address] Sam Szymanski Urea nitrogen [Mass/Vol] 10.0 mg/dL Normal 7.0-18.0 [facility] Comment on above: Performed By: #### L IPID, URIC, CMP #### [facility] [address] [address] [address] Sam Szymanski Urea nitrogen/Creatinine [Mass ratio] 8.9 mg/mg Normal [facility] Comment on above: Performed By: #### L IPID, URIC, CMP #### [facility] [address] [address] [address] Sam Szymanski URIC ACID SERUMon 02-11-2022 Urate [Mass/Vol] 7.3 mg/dL Critically high 3.5-7.2 [facility] Comment on above: Performed By: #### L IPID, URIC, CMP #### [facility] [address] [address] [address] Sam Szymanski Outside Colonoscopyon 2021 Outside Colonoscopy [id number]# 1.00CD:127 Normal [facility] Reminderson 10-17-2021 Reminders - From: Angelica Pinedo LPN To: G[facility] - Clinical; Sent: 10/17/2021 15:19:49 EDT Show up: 09/17/2031 07:00:00 EDT Subject: colonoscopy recall Due Date/Time: 10/17/2031 07:00:00 EDT Reminder/Recall Patient is due for screening colonoscopy 10/17/2031. Normal [facility] Pre-Certification Formon Pre-Certification Form [id number] #1.00CD:127 Normal [facility] Consent for Procedure/Surger yon 08-22-2021 Consent for Procedure/Surgery [id number]# 1.00CD:127 Normal [facility] Facesheeton 08-22-2021 Facesheet [id number]# 1.00CD:127 [facility] Ambulatory Visit Summaryon 0 08-21-2021 Ambulatory Visit [...] of diverticulitis Kidney stone Ureteral stone Normal [facility] Physician Referralon 022 Physician Referral [id number] #1.00CD:127 [facility] Lab Reportson 07-03-2021 Lab Reports [id number] #1.00CD:127 Normal [facility] Lab Reportson 06-29-2021 Lab Reports [id number] #1.00CD:127 Normal [facility] RAD - MISCon 05-27-2021 RAD - MISC [id number] #1.00CD:127 Normal [facility] Vital Signs Date Time Vital Sign Value Performing Clinician Neal ortiz 08-21-2021 14:17-0400 Blood Pressure Location Laura NILL [facility] [place] 08-21-2021 14:17-0400 Diastolic blood pressure 88 mm[Hg] Laura NILL [facility] [place] 08-21-2021 14:17-0400 Heart rate 76 /min Laura NILL [facility] [place] 08-21-2021 14:17-0400 Respiratory rate 16 /min Laura NILL [facility] [place] 08-21-2021 14:17-0400 Systolic blood pressure 116 mm[Hg] Laura NILL [facility] [place] Encounters Encounter Date Encounter Type Care Provider Facility Start: 05-01-2023 End: 05-01-2023 ambulatory LEVI ORTEGA Not Available Start: 08-18-2022 End: 08-19-2022 ambulatory DOMINGA KELLY Facility:[facility] Start: 02-26-2022 End: 02-26-2022 ambulatory DOMINGA KELLY Facility:[facility] Start: 02-12-2022 Encounter for genera l adult medical examination without abnormal findings DR DINA HAMMER . [facility] Start: 02-11-2022 End: 02-12-[address] [...] Comment on above: Performed By: #### P [facility] #### [facility] [address] [place] [address] Dr. Sam Szymanski Start: 05-12-2012 Colonoscopy Laura MARCIAL Lithotripsy Laura SELBY Tonsillectomy Laura SELBY Immunizations Immunization Date Immunization Notes Care Provider Fa cilisydni NEGATED: Highlighted row has not occurred!08-21-2021 influenza virus vaccine, unspecified formulation Laura SELBY [facility] [place] Payers Date Payer Category Payer Unknown [id number] [id number] [id number] 1960 Unknown [id number] 2.16.84 [id number] 1960 Unknown [id number] 2.16.84 [id number] 1960 Unknown [id number] 2.16.84 [id number] 1960 Unknown [id number] 2.16.84 [id number] 1960 Unknown [id number] 1959 Unknown [id number] Social History Date Type Detail Facility Start: 08-21-2021 Tobacco smoking status Ex-smoker (fi nding) [facility] [place] Tobacco smoking status Smokeless tobacco user within last 30 days [facility] [place] Sex Assigned At Male [facility] [place] Clinical Note 10-16-2021 Note Date & Type Note Facility 10-16-2021 Note [facility] [place] [place] NAME: STERLING RAPHAEL DATE OF : MEDICAL REC#: [id number] EXPLORATION ENGINEER: [id number] [facility], TRANSADMIT DATE: 10/16/2021 08:05:00 PLUGMAN DATE: 10/16/2021 21:00 DICTATING PHYSICIAN: LAURA SELBY [...] DR LAURA SELBY . 10/23/2021 08:32:00 [facility] Clinical Note 08-21-2021 Note Date & [...] vaccine, inactivated - Not Given Patient Refuses [facility] Comment on above: Result Comment: Elec tronically Signed By: LILA GUSMAN, Laura Murcia\Date and Time Signed: 08/21/21 16:36 EDT Evaluation + Plan note Note Date & Type Note Facility Evaluation + Plan note No data available for this section [facility] [place] [facility] Discharge instructions Note Date & Type Note Facility Hospital Discharge instructions No data available for this section [facility] [place] Summary Purpose Family History No Family History Records FoundNo Family History Records FoundNo Family History Records Found Advance Directives No Advanced Directives Records FoundNo Advanced Directives Records FoundNo Advanced Directives Records Found Additional Source Comments (unrecognized sect ion and content) No Status Records FoundNo Status Records FoundNo Status Records Found INFORMATION SOURCE (unrecogn ized section and content) DATE CREATED AUTHOR 10/22/[address] [facility] DATE CREATED AUTHOR AUTHOR'S ORGANIZ ATION 08/27/2022 [facility] DATE CREATED AUTHOR AUTHOR'S ORGANIZ ATION 05/03/2023 [facility] FOR RECORDS PERTAINING TO PATIENTS [...] BE BASED ON THE PRIMARY CLINICAL RECORDS. [place] [employer] [facility]. provides no warranty or guarantee of the accuracy or completeness of information in this document.
--- OUTSIDE RECORDS SUMMARY | 2024-12-29 06:45 | XMS_ITS | Clinical Summary ---
Author Organization [facility] Healthcare Address [address] [place] [address] Care Team Providers Care Digital Assistant Name Role Phone Chino Hammer MD Primary Care Provider [phone] Allergies Active Allergy Reactions Criticality Noted Date Comments Pollen Extract 04/03/2023 Other Reaction(s): Runny eye - discharging Medications diclofenac (Voltaren) 75 MG EC tablet 03/29/2023 Active Vraylar 3 MG capsule 03/29/2023 Active buPROPion XL (Wellbutrin XL) 300 MG 24 hr tablet Take 300 mg by mouth in the morning. 02/18/2023 Active Active Problems Problem Noted Date Diagnosed Date Age-related nuclear cataract of left eye 023 Pseudophakia 05/01/2023 Age-related nuclear cataract of both eyes 2022 Family History Medical History Relation Name Comments Macular degeneration Father Relation Name Status Comments Father Social History Tobacco Use Types Packs/Day Years Used Date Smoking Tobacco: Former Cigarettes Tobacco Cessation:Counseling Given: Yes Sex and Gender Information Value Date Recorded Sex Assigned at Not on file Legal Sex Male 9:28 PM EDT Gender Identity Not on file Sexual Orientation Not on file Last Filed Vital Signs Vital Sign Reading Time Taken Comments Blood Pressure - - Pulse - - Temperature - - Respiratory Rate - - Oxygen Saturation - - Inhaled Oxygen Concentration - - Weight 129 kg (285 lb) 09/07/2018 12:00 PM EDT Height 180.3 cm (5' 11 ) 09/07/2018 12:00 PM EDT Body Mass Index 39.75 09/07/2018 12:00 PM EDT Plan of Treatment Health Maintenance Due Date Last Done Comments CT Colonography 1960 FIT-DNA 1960 FIT 1960 FOBT 1960 Sigmoidoscopy 1960 Colonoscopy 05/12/2022 05/12/2012 Colorectal Cancer Screening 05/12/2022 Influenza Vaccine (#1) 2025 Insurance BCBS Care Teams Digital Assistant Relationship Specialty Start Date End Date Chino Hammer MD PCP - General Family Medicine 04/03/23
--- OUTSIDE RECORDS SUMMARY | 2024-12-29 06:45 | XMS_ITS | Patient Health Record ---
Author Organization [facility] in [place] Address [address] [place] [address] Care Team Providers Care Winding Inspector Name Role Phone Jonathon Hammer Primary Care Provider Allergies No Known Allergies Results Component Value Reference Range Notes COVID-19, Flu A+B IH (Not ye t reviewed by provider) Interpretation: Performing Lab: Notes/Report: COVID positive FLU A neg FLU B neg Control present Reason For Referral No Information Medications Medication SIG (Take, Route, Frequency, Duration) Notes Start Date End Date Status Paxlovid (300/100) 20 x 150 MG & 10 x 100MG 3 tablets Orally Twice a day for 5 days 05/05/2024 Active Azithromycin 250 MG 2 tabs today then 1 tab Orally daily for 5 days 05/05/2024 Active dexAMETHasone 6 MG 1 tablet Orally dean y for 5 days 05/05/2024 Active Semaglutide 0.6 mg/0.5 mL Semaglutide 0.6 mg/0.5 mL 0.5 mL Subcutaneous Once Weekly for 30 days 02/29/2024 Active Atorvastatin Calcium 20 MG TAKE 1 TABLET BY MOUTH EVERY DAY for 90 days Active Vraylar 3 MG TAKE 1 CAPSULE BY MO UTH EVERY DAY for 30 days Active Diclofenac Sodium 75 MG TAKE 1 TABLET BY MOUTH TWICE A DAY for 30 Active buPROPion HCl ER (XL) 300 MG TAKE 1 TABLET BY MOUTH EVERY DAY for 90 days Active Fenofibrate 145 MG TAKE 1 TABLET BY [place] TH EVERY DAY for 30 days Active Wegovy 0.25 MG/0.5ML 0.25 mg Subcutaneou s weekly for 30 days 12/24/2023 Active ALPRAZolam 0.25 MG 1 tablet Orally TID for 2 days 09/02/2024 Active Social History Tobacco Use: Social History Observation Description Date Details (start date - stop date) Never Smoker NA - NA Tobacco Use/Smoking Question Answer Notes Patient is a nonsmoker Tobacco use other than smoking: Question Answer Notes Are you an other tobacco user? Yes c hewing tobacco Problems Problem Type SNOMED Code ICD Code Onset Dates Problem Status W/U Status Risk Notes Problem Fatigue (59620399) Fatigue (R53.83) Active conf irmed Problem Dyspnea (861916842) Dyspnea (R06.00) Active con firmed Problem Hypertriglyceridemia (965226812) Hypertriglyceridemia (E78.1) Active confirmed Problem Diabetes (E11.9) Active confirmed Vital Signs Temperature 98.3 degrees Fahrenheit 05/05/2024 Blood pressure diastolic 84 mm Hg 05/05/2024 Height 71 in 05/05/2024 Blood pressure systolic 118 mm Hg 05/05/2024 Weight 286.8 lbs 05/05/2024 BMI 40 kg/m2 05/05/2024 Encounters Encounter Location Date Provider Diagnosis [facility] [address] [place] [address] 05/05/2024 Jonathon awais Acute bronchitis, un specified organism J20.9 [facility] [address] [facility] [address] 02/29/2024 Jonathon [facility] [address] [place] [address] 04/07/2024 Jonathon [facility] [address] [place] [address] 05/16/2024 Jonathon [facility] [address] [facility] [place] [address] 09/02/2024 Jonathon [facility] [address] [place] [address] 10/04/2024 Jonathon [facility] [address] [place] [facility] [address] 11/15/2024 Jonathon [facility] [address] [place] [address] 11/28/2024 Jonathon Hoy Dyspnea R06.00 ; Hypertriglyceridemia E78.1 ; Fatigue R53.83 ; Screening for colon cancer Z12.11 and Diabetes E11.9 Assessments Encounter Date Diagnosis (ICD Code) Assessment Notes Treatment Notes Treatment Clinical Notes Section Notes 05/05/2024 Acute bronchitis, unspecified organism (ICD-10 - J20.9) Rest and drink more liquids, especially water. You may use a humidifier or vaporizer to help keep the drainage moist. Ndns-vwh-ksdqnya Nasal Saline may help the stuffy and runny nose. Use Ibuprofen and or Tylenol as needed for fever, chills, body aches or pain. Children 5 years old should not be given roqc-esl-sxfdxsd cough and cold medications such as guaifenesin and dextromethorphan. If you're over age 5, you may try oxmg-qun-kszzkaz cold medications such as guaifenesin and dextromethorphan, or multi-symptom cold reliever such as Dayquil to help reduce the symptoms. Antibiotics have been prescribed. You should take these until completed and follow the directions. Antibiotics can sometimes cause upset stomach, and in rare cases, serious allergic reactions or serious gastrointestinal problems. If you start having severe abdominal pain, severe vomiting, or bloody diarrhea, you should be reevaluated by your physician or urgent care immediately. Follow up with your Primary Care Provider or return to clinic if symptoms do not improve within 3-5 days. If you develop severe symptoms such as shortness of breath, repeated vomiting, coughing up blood, or chest pain you should go to the emergency room or call 911 11/28/2024 Dyspnea (ICD-10 - R06.00) 11/28/2024 Hypertriglyceridemia (ICD-10 - E78.1) 11/28/2024 Fatigue (ICD-10 - R53.83) 11/28/2024 Screening for colon cancer (ICD-10 - Z12.11) 11/28/2024 Diabetes (ICD-10 - E11.9) Plan Of Treatment Pending Test Test Name Order Date Exercise Treadmill Stress Test (TMST) PSA, PROSTATE-SPECIFIC ANTIGEN T3 FREE, T4 FREE and TSH 05/15/2023 Sleep study - Diagnostic Polysonogram 07 / COMPREHENSIVE METABOLIC PROFILE WITH GFR 11/28/2024 OCCULT BLOOD, FECAL, IMMUNOASSAY 025 CBC W/AUTO DIFF 11/28/2024 COVID-19, Flu A+B IH 05/05/2024 GLYCOHEMOGLOBIN A1C 11/28/2024 LIPID PROFILE 05/20/2023 LIVER PROFILE 05/20/2023 THYROID PANEL (T4/TSH/FREE T3) ECHOCARDIO M/2D COMPLETE 05/21/2023 PSA, SCREENING 11/28/2024 Lipid Panel 11/28/2024 Insurance Providers Payer Name Payer Address Payer Phone Subscriber Number Group Number Insured Name Patient Relationship to Insured Coverage Start Date Coverage End Date [employer] PPO PLUS LOCAL PLAN [address] [place] [phone] [id number] Hutchinson Self - patient is the insured Medical (General) History Surgical History Surgery Date(Month/Year) Kidney Stones right pinky finger sx Tonsils Vasectomy Cataract- Bilateral
[2024-12-29 07:36] LABS: Hematocrit 43.1 % (42.0-54.0); Hemoglobin 14.5 g/dL (14.0-18.0); Immature Granulocytes Abs Auto 0.01 10^3/uL (0.00-0.03); Immature Granulocytes Pct Auto 0.2 % (0.0-0.5); Lymphocytes Absolute Auto 1.5 10^3/uL (1.2-3.8); Mean Corpuscular HGB Conc 33.6 g/dL (29.9-35.2); Mean Corpuscular Hemoglobin 32.6 pg (25.9-34.0); Mean Corpuscular Volume 96.9 fL (80.0-94.0); Platelet Count 229 10^3/uL (150-450); Red Blood Count 4.45 10^6/uL (4.70-6.10); White Blood Count 4.6 10^3/uL (4.0-11.0)
[2024-12-29 08:43] LABS: Alanine Aminotransferase 31 U/L (16-63); Albumin Globulin Ratio 1.3; Albumin Level 3.8 g/dL (3.4-5.0); Alkaline Phosphatase 77 U/L (46-116); Anion Gap 14.9; Aspartate Amino Transferase 19 U/L (15-37); Blood Urea Nitrogen 15.0 mg/dL (7.0-18.0); Calcium 9.0 mg/dL (8.5-10.1); Carbon Dioxide 23.2 mmol/L (21.0-32.0); Chloride 110 mmol/L (98-107); Cholesterol 165 mg/dL (<=200); Estimated GFR (African America >60 (>=60 mL/min/1.73m^2); Estimated GFR (Non-African Ame >60 (>=60 mL/min/1.73m^2); Free T3 2.52 pg/mL (2.18-3.98); Globulin 2.9 g/dL; Glucose 100 mg/dL (74-106); HDL Cholesterol 46 mg/dL (40-60); Potassium 4.1 mmol/L (3.5-5.1); Sodium 144 mmol/L (136-145); Thyroid Stimulating Hormone 1.674 uIU/mL (0.358-3.740); Total Protein 6.7 g/dL (6.4-8.2); Triglycerides 81 mg/dL (<=150); VLDL CHOLESTEROL 16.2 mg/dL
== END 2024-12-29 06:40 | disposition home or self-care (01) ==
LOC: LAB 06:42
PROVIDERS: PCP Family Medicine; Visit Provider Family Medicine
DX: R06.00 Dyspnea, unspecified (principal); E78.1 Pure hyperglyceridemia; R53.83 Other fatigue; E11.9 Type 2 diabetes mellitus without complications; Z12.11 Encounter for screening for malignant neoplasm of colon; Z12.5 Encounter for screening for malignant neoplasm of prostate
CPT/HCPCS: 36415; 80053; 80061; 83036; 84436; 84443; 84481; 85025; G0103; G0328